=== PATIENT | female | born 1950 | race Caucasian/White ===

== ENCOUNTER 2017-04-10 10:07 | Emergency (ER) | payer BC, MEDICARE, OTHER ==
[2017-04-10 10:56] VITALS: BP 150/95
--- NOTE | 2017-04-10 11:04 | UC ---
Skin Complaint HPI - HPI Summary HPI Summary: Pt c/o possible tick bite to lower back, lateral aspect at waist band area. Pt had tick removed 4 days ago and is currently taking doxycycline Q12h given by PCP. - History of Current Complaint Chief Complaint: UCSkin Time Seen by Provider: 04/10/17 10:57 Stated Complaint: SKIN COMPLAINT ON BACK Hx Obtained From: Patient ?: No Onset/Duration: Sudden Onset, Still Present Skin Exposure Onset/Duration: Days Ago - 1 Onset Severity: Mild Current Severity: Mild Pain Intensity: 0 Location: Discrete Aggravating Factor(s): Nothing Alleviating Factor(s): Nothing Associated Signs & Symptoms: Positive: Negative Related History: Insect Bite/Sting - Allergy/Home Medications Allergies/Adverse Reactions: Allergies Allergy/AdvReac Type Severity Reaction Status Date / Time No Known Allergies Allergy Verified 04/10/17 10:56 Home Medications: Home Medications DOXYcycline CAP(*) [DOXYcycline 100MG CAP(*)] 100 mg PO BID 04/10/17 [History Confirmed 04/10/17] Losartan/Hydrochlorothiazide [Losartan-Hctz 100-25 mg Tab] 1 tab PO 04/10/17 [ History] Review of Systems Constitutional: Negative Skin: Other - possible tick bite Eyes: Negative ENT: Negative Respiratory: Negative Cardiovascular: Negative Gastrointestinal: Negative Genitourinary: Negative Motor: Negative Neurovascular: Negative Musculoskeletal: Negative Neurological: Negative Psychological: Negative Is Patient Immunocompromised?: No All Other Systems Reviewed And Are Negative: Yes PMH/Surg Hx/FS Hx/Imm Hx Previously Healthy: Yes - Surgical History Surgical History: Yes Surgery Procedure, Year, and Place: 2011 ARTHROSCOPY LEFT KNEE, [place]. R knee- 2012, bilat knee replacement - Family History Known Family History: Positive: Cardiac Disease - Social History Occupation: Retired Lives: With Family Alcohol Use: None Alcohol Amount: for lent Substance Use Type: None Smoking Status (MU): Never Smoked Tobacco Have You Smoked in the Last Year: No - Immunization History Most Recent Tetanus Shot: 2011 Physical Exam Triage Information Reviewed: Yes Appearance: Well-Appearing Vital Signs: Initial Vital Signs Temp 98.6 F 04/10/17 10:40 Pulse 78 04/10/17 10:40 Resp 18 04/10/17 10:40 BP 150/95 04/10/17 10:40 Pulse Ox 100 03/02/18 10:40 Vital Signs Reviewed: Yes Eye Exam: Normal ENT Exam: Normal Neck exam: Normal Respiratory: Positive: No respiratory distress Musculoskeletal Exam: Normal Neurological Exam: Normal Psychological Exam: Normal Skin Exam: Other - possible tick bite Course/Dx - Course Course Of Treatment: Possible tick bite, darkened area tiny, removed with splinter forceps. pt tolerated well. Pt is currently on doxycycline - Differential Diagnoses - Skin Complaint Differential Diagnoses: Tick Born Illness - Diagnoses Provider Diagnoses: tick bite. tick removed Discharge - Discharge Plan Condition: Stable Disposition: HOME Patient Education Materials: Insect Bite or Sting (ED) Referrals: Daniele Oakes MD [Primary Care Provider] - If Needed
== END 2017-04-10 11:09 | disposition home or self-care (01) ==
LOC: UCCORT 10:07
DX: S30.860D Insect bite (nonvenomous) of lower back and pelvis, subsequent encounter (principal)
CPT/HCPCS: 99211; G0463

== ENCOUNTER 2017-06-10 14:04 | Emergency (ER) | payer BC, MEDICARE, OTHER ==
[2017-06-10 14:37] VITALS: BP 120/72
--- NOTE | 2017-06-10 15:01 | UC ---
Skin Complaint HPI - HPI Summary HPI Summary: Pt was cutting brush yesterday in the [place] when puncture to right posterior inferior calf. Pt reports ongoing pain and serosangenous drainage. pt states feels more sore than previous similar injuries and is concerned for FB. No paresthesia. Pt cleaned with soap and water yesterday. Not immununocompromised. Tdap UTD. No analgesia taken Pt's medications reviewed this visit - History of Current Complaint Chief Complaint: UCLowerExtremity Time Seen by Provider: 06/10/17 14:58 Stated Complaint: RT LEG INJURY Hx Obtained From: Patient ?: No Onset/Duration: Sudden Onset Skin Exposure Onset/Duration: Days Ago Timing: Constant Onset Severity: Mild Current Severity: Moderate Pain Intensity: 6 Location: Discrete Aggravating Factor(s): Touch Alleviating Factor(s): Nothing Associated Signs & Symptoms: Positive: Negative - Allergy/Home Medications Allergies/Adverse Reactions: Allergies Allergy/AdvReac Type Severity Reaction Status Date / Time No Known Allergies Allergy Verified 04/10/17 10:56 Review of Systems Constitutional: Negative Skin: Other All Other Systems Reviewed And Are Negative: Yes PMH/Surg Hx/FS Hx/Imm Hx Previously Healthy: Yes - Surgical History Surgical History: Yes Surgery Procedure, Year, and Place: 2011 ARTHROSCOPY LEFT KNEE, [place]. R knee- 2013, bilat knee replacement. RIGHT THUMB I&D. TONSILLECTOMY - Family History Known Family History: Positive: None, Cardiac Disease - Social History Occupation: Retired Lives: With Family Alcohol Use: Weekly Alcohol Amount: for lent Substance Use Type: None Smoking Status (MU): Never Smoked Tobacco Have You Smoked in the Last Year: No - Immunization History Most Recent Tetanus Shot: 2011 Physical Exam Triage Information Reviewed: Yes Appearance: Well-Appearing, No Pain Distress, Well-Nourished Vital Signs: Initial Vital Signs Temp 98.6 F 06/10/17 14:29 Pulse 82 06/10/17 14:29 Resp 18 06/10/17 14:29 BP 120/72 06/10/17 14:29 Pulse Ox 100 06/10/17 14:29 Vital Signs Reviewed: Yes Eyes: Positive: Conjunctiva Clear ENT: Positive: Hearing grossly normal Neck: Positive: Supple Respiratory: Positive: No respiratory distress, No accessory muscle use Cardiovascular: Positive: Other: - 2+ DP, PT CBT < 2 sec Musculoskeletal Exam: Other - + flex/ext ankle with "pulling" right posterior calf + flex/ext knee Neurological: Positive: Other: - + gross sensation throughout foot Skin: Positive: Other - Pt with puncture wound posterior inferior calf. Pt with scant serosangenous drainage mild erythema no fluctuance No palpable or visible fb No red streaking Diagnostics - Radiology No standard instances Radiology Interpretation Completed By: Radiologist - Neg US for fb normal xray Course/Dx - Course Course Of Treatment: will update tdap. augmentin. soaks. motrin/apap. return precautions - Diagnoses Provider Diagnoses: puncture wound. cellulitis - mild Discharge - Sign-Out/Discharge Documenting (check all that apply): Discharge/Admit/Transfer - Discharge Plan Condition: Stable Disposition: HOME Prescriptions: Amoxicillin/Clavulanate TAB* [Augmentin TAB 875*] 875 mg PO BID #20 tab Patient Education Materials: Puncture Wound (ED), Cellulitis (ED) Referrals: Daniele Oakes MD [Primary Care Provider] - Additional Instructions: - Apply warm soak 2-3 times a day for the next 3-4 days - Cover wound with thin layer of antibiotics 2 times a day and bandage - elevate your leg to help with swelling and pain - Okay to take tylenol every 6 hours as needed for pain - monitor your wound for worsening infection - reddness, red streaking, odor, fever - contact your doctor or got to the emergency department with any questions or concerns - Billing Disposition and Condition Condition: STABLE Disposition: HOME
[2017-06-10] MEDS ORDERED: Tetan/Diph/Pertus SYR(Tdap)* 0.5 ML SYR(BOOSTRIX) use SYR IM ONE ×2 (15:05→15:57)
[2017-06-10] MEDS ORDERED: Lidocaine 1% MPF* 2 ML VIAL INJ ONE (15:05)
--- NOTE | 2017-06-10 15:34 | RAD ---
Indication: Question wood foreign body at the posterior inferior RIGHT calf. Comparison: No relevant prior exams available on the [facility] PACS for comparison. Technique: Ultrasound of the posterior inferior RIGHT calf corresponding with the region of clinical concern. REPORT AND IMPRESSION: Dermal and subcutaneous edema at the site of clinical concern without evidence for a loculated fluid collection or conspicuous foreign body.
--- NOTE | 2017-06-10 16:20 | RAD ---
HISTORY: Puncture wound above the Achilles, rule out foreign body COMPARISONS: Ultrasound dated June 10, 2012 VIEWS: 2, Frontal and lateral views of the right ankle and distal foreleg. FINDINGS: BONE DENSITY: Normal. BONES: There is no displaced fracture. JOINTS: There is no arthropathy. ALIGNMENT: There is no dislocation. SOFT TISSUES: Unremarkable. OTHER FINDINGS: There is no radiopaque foreign body. IMPRESSION: NO ACUTE OSSEOUS INJURY. NO RADIOPAQUE FOREIGN BODY. IF SYMPTOMS PERSIST, RECOMMEND REPEAT IMAGING.
== END 2017-06-10 16:30 | disposition home or self-care (01) ==
LOC: UCCORT 14:04
DX: S81.831A Puncture wound without foreign body, right lower leg, initial encounter (principal); L03.818 Cellulitis of other sites; L03.115 Cellulitis of right lower limb; X58.XXXA Exposure to other specified factors, initial encounter; Y93.89 Activity, other specified; Y92.821 Forest as the place of occurrence of the external cause
CPT/HCPCS: 90471; 90715; 99212; G0463

== ENCOUNTER 2018-07-21 15:30 | Emergency (ER) | payer MEDICARE, BC ==
--- OUTSIDE RECORDS SUMMARY | 2018-07-21 15:48 | XMS REPORT | Continuity of Care Document ---
:1950 External Reference #:[id number] Author Name Ashley Aguirre Care Team Providers Name Role Daniele Damon MD Primary Care Physician Unavailable Payers Date Identification Numbers Payment Provider Subscriber Expires: 2018 Policy Number: [id number] Johnnyus Haynes Loulou PayID: [id number] [address] [address] [place] [address] Policy Number: [id number] Medicare Hemalathadanika Azevedo Loulou PayID: [id number] [address] [place] [address] Policy Number: [id number] Tarah Jamil Group Name: Matt [address] [address] PayID: [id number] [place] [address] Problems Active Problems Provider Date Mitral valve disorder Daniele Oakes MD Onset: 11/28/2010 Osteoarthritis Daniele Oakes MD Onset: 11/28/2010 Removal of suture Daniele Oakes MD Onset: 12/30/2010 Joint effusion of ankle AND/OR foot Daniele Oakes MD Onset: 2011 Stricture of esophagus Daniele Oakes MD Onset: 06/09/2012 Spasmodic torticollis Daniele Oakes MD Onset: 11/08/2012 Essential hypertension Daniele Oakes MD Onset: 02/23/2013 Family History Date Family Member(s) Observation Comments Father Colon Cancer Age 47 Father Prostate Disease Mother Alzheimer's Disease Social History Type Date Description Comments Sex Unknown Marital Status Tobacco Use Start: Unknown Never Smoked Cigarettes ETOH Use Consumes 1 glass of wine per day Tobacco Use Start: Unknown Patient has never smoked Recreational Drug Use Denies Drug Use Smoking Status Reviewed: 09/18/16 Patient has never smoked Currently Active The patient is currently sexually active Allergies, Adverse Reactions, Alerts Description No Known Drug Allergies Medications Active Medications SIG Qnty Indications Ordering Date Provider Shingrix 1 dose intramuscular 2doses Daniele Oakes MD 06/09/2017 50mcg then repeat in 4 Suspension Rec month Losartan 1 by mouth every day 90taalexandra Oakes MD 05/29/2016 Potassium/Hydrochlo rothiazide 100-25mg Tablets Polyethylene Glycol 17 gm every day as 90unmecca Oakes MD 06/16/2014 3350 needed Powder Amitiza 1pobid 180capjohanny Oakes MD 09/10/2010 8mcg Capsules History Medications Doxycycline Hyclate 1 by mouth twice a 28caps Daniele Oakes MD 04/03/2017 - 100mg day 06/09/2017 Capsules Toprol XL 1 by mouth every 90taalexandra Oakes MD 09/18/2016 - 25mg Tablets ER at night 06/09/2017 24HR Sulindac tab 1 by mouth 90taalexandra Oakes MD 03/21/2016 - 200mg Tablets every day 05/29/2016 Losartan 1 by mouth every 90tabs Daniele Oakes MD 03/21/2016 - Potassium/Hydrochlorot day 05/29/2016 hiazide 50-12.5mg Tablets Vasotec 1 by mouth every 90taalexandra Oakes MD 07/12/2015 - 10mg Tablets day 03/21/2016 Folgard 1 po qd 90taalexandra Oakes MD 05/29/2015 - Tablets 09/18/2016 Zostavax injection as 1unmecca Oakes MD 05/29/2015 - 82909Lbw/0.65ML ordered 07/02/2015 Solution Rec Belviq tab 1 by mouth 30taalexandra Oakes MD 01/12/2014 - 10mg Tablets every day 07/12/2015 Toprol XL 1 po hs 90taalexandra Oakes MD 03/21/2013 - 25mg Tablets ER 12/28/2013 24HR Folgard 1 po qd 90taalexandra Oakes MD 03/14/2013 - Tablets 05/29/2015 Polyethylene Glycol 17 gm every day 90pantera Oakes MD 03/14/2013 - 3350 and needed 06/16/2014 3350NF Packet Folgard 1 po qd 90taalexandra Oakes MD 03/09/2013 - Tablets 03/14/2013 Polyethylene Glycol as directed prn 90unmecca Oakes MD 03/09/2013 - 1450 03/14/2013 1450 Powder Omeprazole 1 by mouth every 90tabs Daniele Oakes MD 03/09/2013 - 20mg Tablets day 03/21/2016 DR March 1 po qd 90taalexandra Oakes MD 03/03/2013 - 5mg Tablets 12/28/2013 Anca 1 po qd 90tabs Gracie Stafford, 02/23/2013 - 5mg Tablets M.D. 03/14/2013 Robaxin tab 1 bid prn 60tabs Daniele Oakes MD 11/08/2012 - 500mg Tablets muscle spasm 06/13/2013 Asprin 1 po qd 30units Daniele Oakes MD 12/03/2011 - 325mg 05/29/2015 Nexium 1 po qd 30caps Daniele Oakes MD 11/29/2009 - 40mg Capsules 12/14/2012 Cipro 1 po bid 14tabs Daniele Oakes MD 09/04/2009 - 250mg Tablets 11/29/2009 Lariam 1 po q week start 10taalexandra Oakes MD 09/03/2009 - 250mg Tablets 1 week before trip 11/29/2009 continue for 4 weeks after Vitamin D-3 Super daily otc Daniele Oakes MD 05/24/2009 - Strength 09/18/2016 2000Unit Tablets Lariam 1 po q week start 10tabs Nurse 02/12/2009 - 250mg Tablets 1 week before trip 05/24/2009 continue for 4 weeks after Procardia 1 q day 90capjohanny Oakes MD 09/01/2007 - 10mg Capsules 11/28/2008 Medrol Dose Alex use as directed Daniele Oakes MD 08/26/2005 - 4mg 02/10/2007 Tablets Augmentin 1 po bid with food 20tabs Daniele Oakes MD 08/26/2005 - 875mg Tablets 02/10/2007 Folgard OS 1 po qd 90tabs Daniele Oakes MD 08/26/2005 - 1.5mg;500 mg 03/09/2013 Tablets Glycolax 1 capful in 8 527Gram Daniele Oakes MD 08/26/2005 - Powder Tablets ounces of water 12/14/2012 every 2-3 days for bowel movement Meridia 1 po qd 30caps Daniele Oakes MD 01/23/2005 - 10mg Capsules 11/28/2010 Zithromax Z-Alex 1 po qd 1Pak Daniele Oakes MD 01/23/2005 - 250mg 02/13/2005 Tablets Protonix 1 po qd 90caps Daneile Oakes MD 01/21/2005 - 40mg Capsules 02/05/2005 Aspirin Daniele Oakes MD 01/21/2005 - 81mg Enteric 02/05/2005 Zelnorm 1 po bid 180tabs Daniele Oakes MD - 6mg Tablets 06/22/2007 Semprex D 1 po q 6 hr Unknown - 8mg;60 mg 06/22/2007 Capsules Naprosyn 1 po bid with food 60tabs Unknown - 500mg Tablets prn pain 06/13/2013 Immunizations CPT Code Status Date Vaccine Lot # [id number] Given 10/13/2017 Influenza Virus (Afluria) Split Virus 3 Years [id number] Of Age And Older Q2035 Given 02/18/2017 Influenza Virus (Afluria) Split Virus 3 Years [id number] Of Age And Older Q2035 Given 11/11/2016 Influenza Virus (Afluria) Split Virus 3 Years Of Age And Older Q2037 Given 12/04/2015 Influenza Vaccine (Fluvirin) 1 Years Of Age Or [id number] Older 07304 Given 05/29/2015 Zostavax 06296 Given 02/14/2015 Pneumococcal Conjugate Vaccine 13 Valent For [id number] Intramuscular Use Q2038 Given 12/28/2013 Influenza Vaccine (Fluzone) Administered Age 3 [id number] And Older Q2036 Given 12/28/2013 Flulaval 97375 Given 12/28/2013 Pneumovax Polyvalent Inj Im Q2037 Given 12/14/2012 Influenza Vaccine (Fluvirin) 3 Years Of Age Or Older Q2037 Given 2011 Influenza Vaccine (Fluvirin) 1 Years Of Age Or [id number] Older 63179 Given 06/02/2011 Tetanus,Diphtheria,Adut/Adol Pertussis [id number] Q2036 Given 11/28/2010 Flulaval [id number] 20774 Given 11/29/2009 Influenza Vaccine [id number] 63571 Given 06/12/2009 Hepatitis B Vaccine [id number] 09981 Given 03/15/2009 Hepatitis B Vaccine 79616 Given 03/15/2009 Hepatitis B Vaccine [id number] 19931 Given 03/15/2009 Typhoid Inj- Capsular Polysaccharide Intramuscular Use 89192 Given 03/15/2009 Typhoid Inj- Capsular Polysaccharide [id number] Intramuscular Use 77025 Given 02/12/2009 Hepatitis B Vaccine [id number] 75310 Given 02/12/2009 Tetanus Shot [id number] 28105 Given 02/12/2009 Hepatitis A Vaccine [id number] Vital Signs Date Vital Result Comment 07/20/2018 9:14am BP Systolic 112 mmHg BP Diastolic 82 mmHg Heart Rate 80 /min Height 68 inches 5'8" Weight 169.00 lb BMI (Body Mass Index) 25.7 kg/m2 01/19/2018 12:53pm BP Systolic 138 mmHg BP Diastolic 84 mmHg Height 68 inches 5'8" Weight 166.00 lb BMI (Body Mass Index) 25.2 kg/m2 10/29/2017 1:35pm BP Systolic 138 mmHg BP Diastolic 82 mmHg Heart Rate 80 /min Respiratory Rate 18 /min Weight 165.00 lb O2 % BldC Oximetry 97 % 10/13/2017 8:30am BP Systolic 120 mmHg BP Diastolic 76 mmHg Heart Rate 64 /min Respiratory Rate 18 /min Weight 168.00 lb O2 % BldC Oximetry 97 % 06/09/2017 9:02am BP Systolic 140 mmHg BP Diastolic 90 mmHg BP Systolic Recheck 121 mmHg home bp reading BP Diastolic Recheck 77 mmHg home bp reading Weight 170.00 lb 11/11/2016 4:17pm BP Systolic 128 mmHg BP Diastolic 70 mmHg Heart Rate 66 /min Respiratory Rate 18 /min Height 68 inches 5'8" Weight 169.00 lb BMI (Body Mass Index) 25.7 kg/m2 09/18/2016 10:10am BP Systolic 140 mmHg BP Diastolic 80 mmHg Height 68 inches 5'8" Weight 170.00 lb BMI (Body Mass Index) 25.8 kg/m2 05/29/2016 12:53pm BP Systolic 142 mmHg BP Diastolic 82 mmHg Height 68 inches 5'8" Weight 160.00 lb BMI (Body Mass Index) 24.3 kg/m2 03/21/2016 8:48am BP Systolic 150 mmHg BP Diastolic 100 mmHg Height 68 inches 5'8" Weight 170.00 lb BMI (Body Mass Index) 25.8 kg/m2 12/04/2015 1:02pm BP Systolic 120 mmHg BP Diastolic 64 mmHg Height 68 inches 5'8" Weight 166.00 lb BMI (Body Mass Index) 25.2 kg/m2 07/12/2015 3:24pm BP Systolic 160 mmHg BP Diastolic 90 mmHg 05/29/2015 9:58am BP Systolic 130 mmHg BP Diastolic 80 mmHg Height 68 inches 5'8" Weight 163.00 lb BMI (Body Mass Index) 24.8 kg/m2 02/14/2015 8:30pm BP Systolic 138 mmHg BP Diastolic 78 mmHg Height 68 inches 5'8" Weight 165.00 lb BMI (Body Mass Index) 25.1 kg/m2 10/04/2014 4:11pm BP Systolic 132 mmHg BP Diastolic 70 mmHg 09/08/2014 3:43pm BP Systolic 122 mmHg BP Diastolic 84 mmHg Height 68 inches 5'8" Weight 165.00 lb BMI (Body Mass Index) 25.1 kg/m2 08/09/2014 2:18pm BP Systolic 140 mmHg BP Diastolic 88 mmHg Height 68 inches 5'8" Weight 164.00 lb BMI (Body Mass Index) 24.9 kg/m2 07/19/2014 7:23pm BP Systolic 138 mmHg BP Diastolic 72 mmHg 06/16/2014 2:53pm BP Systolic 122 mmHg BP Diastolic 68 mmHg Height 68 inches 5'8" Weight 165.00 lb BMI (Body Mass Index) 25.1 kg/m2 05/17/2014 2:29pm BP Systolic 144 mmHg BP Diastolic 86 mmHg Height 68 inches 5'8" Weight 173.00 lb BMI (Body Mass Index) 26.3 kg/m2 04/12/2014 7:39pm BP Systolic 136 mmHg BP Diastolic 76 mmHg Height 69 inches 5'9" Weight 166.00 lb [facility] (Body Mass Index) 24.5 kg/m2 03/24/2014 3:17pm BP Systolic 138 mmHg BP Diastolic 88 mmHg Height 69 inches 5'9" Weight 172.00 lb BMI (Body Mass Index) 25.4 kg/m2 02/22/2014 1:42pm BP Systolic 140 mmHg BP Diastolic 80 mmHg Height 69 inches 5'9" Weight 178.00 lb BMI (Body Mass Index) 26.3 kg/m2 01/26/2014 10:02am BP Systolic 130 mmHg BP Diastolic 80 mmHg Height 69 inches 5'9" Weight 179.00 lb BMI (Body Mass Index) 26.4 kg/m2 01/12/2014 1:42pm BP Systolic 140 mmHg BP Diastolic 80 mmHg Weight 181.00 lb 12/28/2013 10:46am BP Systolic 130 mmHg BP Diastolic 90 mmHg Height 67 inches 5'7" Weight 174.00 lb BMI (Body Mass Index) 27.2 kg/m2 09/19/2013 12:32pm BP Systolic 132 mmHg BP Diastolic 80 mmHg Height 67 inches 5'7" Weight 171.00 lb BMI (Body Mass Index) 26.8 kg/m2 06/13/2013 11:18am BP Systolic 120 mmHg BP Diastolic 82 mmHg 04/05/2013 12:08pm BP Systolic 144 mmHg BP Diastolic 90 mmHg 03/21/2013 9:27am BP Systolic 140 mmHg BP Diastolic 98 mmHg 03/08/2013 4:35pm BP Systolic 140 mmHg BP Diastolic 80 mmHg 03/03/2013 11:51am BP Systolic 150 mmHg BP Diastolic 90 mmHg 02/25/2013 8:38am BP Systolic 140 mmHg BP Diastolic 94 mmHg 02/23/2013 3:06pm BP Systolic 180 mmHg BP Diastolic 108 mmHg BP Systolic Recheck 160 mmHg BP Diastolic Recheck 100 mmHg 12/14/2012 12:00pm BP Systolic 124 mmHg BP Diastolic 70 mmHg Height 69 inches 5'9" Weight 172.00 lb BMI (Body Mass Index) 25.4 kg/m2 11/08/2012 3:24pm BP Systolic 150 mmHg BP Diastolic 90 mmHg 06/11/2012 11:13am BP Systolic 118 mmHg BP Diastolic 74 mmHg 06/09/2012 2:06pm BP Systolic 132 mmHg BP Diastolic 76 mmHg Height 68 inches 5'8" 06/03/2012 10:02am BP Systolic 132 mmHg BP Diastolic 76 mmHg Height 68 inches 5'8" Weight 167.00 lb BMI (Body Mass Index) 25.4 kg/m2 12/23/2011 12:05pm BP Systolic 136 mmHg BP Diastolic 80 mmHg Height 68 inches 5'8" Weight 166.00 lb BMI (Body Mass Index) 25.2 kg/m2 12/03/2011 10:18am BP Systolic 110 mmHg BP Diastolic 80 mmHg Height 68 inches 5'8" Weight 168.00 lb BMI (Body Mass Index) 25.5 kg/m2 2011 2:49pm BP Systolic 120 mmHg BP Diastolic 82 mmHg 09/24/2011 10:42am BP Systolic 118 mmHg BP Diastolic 70 mmHg Height 68 inches 5'8" Weight 176.00 lb BMI (Body Mass Index) 26.8 kg/m2 09/16/2011 3:18pm BP Systolic 110 mmHg BP Diastolic 80 mmHg 06/02/2011 10:16am BP Systolic 130 mmHg BP Diastolic 80 mmHg Height 69 inches 5'9" Weight 176.00 lb BMI (Body Mass Index) 26.0 kg/m2 12/30/2010 11:41am BP Systolic 112 mmHg BP Diastolic 78 mmHg 11/28/2010 10:58am BP Systolic 140 mmHg BP Diastolic 88 mmHg Height 68 inches 5'8" Weight 174.00 lb BMI (Body Mass Index) 26.5 kg/m2 05/30/2010 2:55pm BP Systolic 137 mmHg BP Diastolic 77 mmHg Weight 166.00 lb 11/29/2009 3:23pm BP Systolic 142 mmHg BP Diastolic 80 mmHg Weight 163.00 lb 05/24/2009 3:16pm BP Systolic 118 mmHg BP Diastolic 80 mmHg Weight 163.00 lb 12/25/2008 2:44pm BP Systolic 144 mmHg BP Diastolic 98 mmHg 11/28/2008 2:52pm BP Systolic 122 mmHg BP Diastolic 70 mmHg Height 68.25 inches 5'8.25" Weight 159.00 lb BMI (Body Mass Index) 24.0 kg/m2 05/15/2008 3:37pm BP Systolic 118 mmHg BP Diastolic 80 mmHg Height 68.25 inches 5'8.25" Weight 163.00 lb BMI (Body Mass Index) 24.6 kg/m2 11/24/2007 3:27pm BP Systolic 128 mmHg BP Diastolic 70 mmHg Height 68.25 inches 5'8.25" Weight 169.00 lb BMI (Body Mass Index) 25.5 kg/m2 09/01/2007 12:55pm BP Systolic 138 mmHg BP Diastolic 92 mmHg Height 68.25 inches 5'8.25" 07/21/2007 3:18pm BP Systolic 140 mmHg BP Diastolic 76 mmHg Height 68.25 inches 5'8.25" 06/22/2007 3:35pm BP Systolic 138 mmHg BP Diastolic 86 mmHg Height 68.25 inches 5'8.25" Weight 166.00 lb BMI (Body Mass Index) 25.1 kg/m2 02/10/2007 3:10pm BP Systolic 154 mmHg BP Diastolic 98 mmHg Height 68.25 inches 5'8.25" Weight 166.00 lb BMI (Body Mass Index) 25.1 kg/m2 08/26/2005 1:32pm BP Systolic 140 mmHg BP Diastolic 80 mmHg Height 68.25 inches 5'8.25" 02/13/2005 12:47pm BP Systolic 122 mmHg BP Diastolic 84 mmHg Height 68.25 inches 5'8.25" Weight 177.00 lb BMI (Body Mass Index) 26.7 kg/m2 02/05/2005 10:55am BP Systolic 160 mmHg BP Diastolic 98 mmHg Height 68.25 inches 5'8.25" Weight 178.00 lb BMI (Body Mass Index) 26.9 kg/m2 Results Test Date Facility Test Result H/L Range Note Basic Metabolic 07/13/2018 [facility] Sodium 140 mmol/L 135-146 [address] [place] [address] [phone] Potassium 4.0 mmol/L 3.5-5.3 Chloride 102 mmol/L 98-110 Carbon Dioxide 28 mmol/L 20-32 2 Calcium 9.4 mg/dL 8.6-10.4 Glucose 98 mg/dL 65-99 3 Urea Nitrogen (BUN) 14 mg/dL 7-25 Creatinine 0.83 mg/dL 0.50-0.99 4 BUN/Creatinine Ratio 16.9 6-22 Egfr Non-Afr. [place] 72 ML/MIN/1.73M2 > Or=60 Egfr 83 ML/MIN/1.73M2 > Or=60 General Health 01/06/2018 [facility] Thyroid Stim 2.38 uIU/mL N 0.30-4.20 5 Panel [facility] [address] [place] [place] [address] [phone] Free T4 0.88 ng/dL N 0.76-1.46 .CBC W/Auto 01/06/2018 [facility] White Blood 7.5 K/ uL N 3.1-10.[address] [place] [address] [phone] Red Blood Count 3.94 M/uL N 3.90-5.40 Hemoglobin 13.8 gm/dL N 11.6-15.8 Hematocrit 40.7 % N 36.0-46.1 Mean Cell Volume 103.3 fl High 80.9-99.0 Mean Corpuscular HGB 35.0 pg High 25.9-32.7 Mean Corpuscular HGB Conc 33.9 g/dL N 30.8-34.3 Platelet Count 254 K/uL N 155-360 Red Cell Distri Width SD 45.4 fl N 3-47 Red Cell Distri Width %CV 12.3 % N 11.7-14.4 Mean Platelet Volume 11.0 fL N 8.9-12.4 Neut% 74.0 % High 40.4-72.8 Lymph % 18.0 % Low 20.0-42.0 [place] % 7.2 % N 4.3-13.2 Eo% 0.5 % N 0.0-6.6 Bas% 0.3 % N 0.0-1.1 Neut# 5.57 K/uL N 1.8-7.0 Lymph # 1.35 K/uL N 1.0-4.0 [place] # 0.54 K/uL N 0.3-0.9 Eos # 0.04 K/uL N 0.0-0.5 Baso # 0.02 K/uL N 0.0-0.1 .Lipid Panel 01/06/2018 [facility] Cholesterol 233 mg /dL High <[address] [place], [place] [id number] [phone] Triglycerides 87 mg/dL <150 7 HDL Cholesterol 78 mg/dL >40 8 LDL-Cholesterol 138 mg/dL < 100 9 Comprehensive 01/06/2018 [facility] Glucose 115 mg/ dL High 74-106 Metabolic Panel [address] [place], [place] [id number] [phone] BUN 14 mg/dL N 7-18 Creatinine 1.0 mg/dL N 0.6-1.3 Glom Filtration Rate, Estimate 58 mL/min >60 If >60 mL/min >60 10 BUN/Creat 14.0 ratio Sodium 139 mmol/L N 136-145 Potassium 3.8 mmol/L N 3.5-5.1 Chloride 104 mmol/L N 98-107 Carbon Dioxide 29 mmol/L N 21-32 Anion Gap 6 mEq/L Low 8-16 Calcium 9.2 mg/dL N 8.5-10.1 Total Protein 7.8 g/dL N 6.4-8.2 Albumin 3.9 g/dL N 3.4-5.0 Globulin 3.9 g/dL N 1.9-4.3 Alb/Glob 1.0 ratio Bilirubin,Total 0.8 mg/dL N 0.2-1.0 Sgot/Ast 27 U/L N 15-37 SGPT/Alt 39 U/L N 12-78 Alkaline Phosphatase 72 U/L N 45-117 Comp Metabolic Panel 09/28/2017 [facility] Sodium 139 mmol/L 135-[address] [place] [address] [phone] Potassium 3.9 mmol/L 3.5-5.3 Chloride 100 mmol/L 98-110 Carbon Dioxide 27 mmol/L 20-31 Calcium 9.9 mg/dL 8.6-10.4 Alkaline Phosphatase 78 U/L 33-130 Ast 24 U/L 10-35 Alt 23 U/L 6-29 Bilirubin,Total 1.0 mg/dL 0.2-1.2 Glucose 86 mg/dL 65-99 12 Urea Nitrogen (BUN) 21 mg/dL 7-25 Creatinine 0.99 mg/dL 0.50-0.99 13 BUN/Creatinine Ratio 20.8 6-22 Protein,Total 7.5 g/dL 6.1-8.1 Albumin 4.7 g/dL 3.6-5.1 Globulin,Calculated 2.8 g/dL 1.9-3.7 A/G Ratio 1.7 1.0-2.5 Egfr Non-Afr. [place] 59 ML/MIN/1.73M2 Low > Or=60 Egfr 68 ML/MIN/1.73M2 > Or=60 CBC W/ Diff & PLT 10/24/2016 [facility] WBC 4.6 thous/L 3.8-10.[address] [place] [address] [phone] RBC 3.85 mill/L 3.80-5.10 Hemoglobin 13.5 g/dL 11.7-15.5 Hematocrit 39.4 % 35.0-45.0 MCV 102.3 FL High 80.0-100.0 MCH 35.1 pg High 27.0-33.0 MCHC 34.3 g/dL 32.0-36.0 RDW 13.2 % 11.0-15.0 Platelet Count 290 thous/L 140-400 Platelet Sufficiency PENDING MPV 9.1 FL 7.5-12.5 Neutrophils,Absolute 2500 cells/L 4380-2218 Bands,Absolute PENDING Metamyelocytes,Absolute PENDING Myelocytes,Absolute PENDING Promyelocytes,Absolute PENDING Lymphocytes,Absolute 1610 cells/L 850-3900 Monocytes,Absolute 350 cells/L 200-950 Eosinophils,Absolute 80 cells/L 15-500 Basophils,Absolute 20 cells/L 0-200 Blast Cells,Absolute PENDING Nucleated RBC,Absolute PENDING Total Neutrophils,% 55 % 40-75 Bands,% PENDING Metamyelocytes,% PENDING Myelocytes,% PENDING Promyelocytes,% PENDING Total Lymphocytes,% 35 % 12-47 Monocytes,% 8 % 4-12 Eosinophils,% 2 % 0-4 Basophils,% 1 % 0-1 14 Blasts,% PENDING Nucleated RBC PENDING RBC Morphology PENDING Anisocytosis PENDING Poikilocytosis PENDING Microcytosis PENDING Macrocytosis PENDING Polychromasia PENDING Hypochromasia PENDING Target Cells PENDING Basophilic Stippling PENDING Comment PENDING Hepatic Function 10/24/2016 [facility] Alkaline Phosphatase 54 U/L 33- [address] [place] [address] [phone] Ast 20 U/L 10-35 Alt 16 U/L 6-29 Bilirubin,Total 0.6 mg/dL 0.2-1.2 Bilirubin,Direct 0.1 mg/dL < Or=0.2 Protein,Total 6.9 g/dL 6.1-8.1 Albumin 4.3 g/dL 3.6-5.1 Globulin,Calculated 2.6 g/dL 1.9-3.7 A/G Ratio 1.6 1.0-2.5 Basic Metabolic Panel 10/24/2016 [facility] Sodium 139 mmol/L 135-[address] [place] [address] [phone] Potassium 4.1 mmol/L 3.5-5.3 Chloride 102 mmol/L 98-110 Carbon Dioxide 27 mmol/L 20-31 Calcium 9.5 mg/dL 8.6-10.4 Glucose 95 mg/dL 65-99 15 Urea Nitrogen 14 mg/dL 7-25 Creatinine 0.86 mg/dL 0.50-0.99 16 BUN/Creatinine Ratio 16.0 6-22 Egfr Non-Afr. [place] 69 ML/MIN/1.73M2 > Or=60 Egfr 80 ML/MIN/1.73M2 > Or=60 Basic Metabolic Panel 09/18/2016 [facility] Sodium 139 mmol/L 135-[address] [place] [address] [phone] Potassium 3.9 mmol/L 3.5-5.3 Chloride 103 mmol/L 98-110 Carbon Dioxide 26 mmol/L 20-31 Calcium 9.9 mg/dL 8.6-10.4 Glucose 103 mg/dL High 65-99 17 Urea Nitrogen 16 mg/dL 7-25 Creatinine 0.80 mg/dL 0.50-0.99 18 BUN/Creatinine Ratio 20.5 6-22 Egfr Non-Afr. [place] 76 ML/MIN/1.73M2 > Or=60 Egfr 88 ML/MIN/1.73M2 > Or=60 General Health Panel 05/22/2016 [facility] TSH 2.42 mIU/L 0.40-4.50 19 [address] [place] [address] [phone] T4,Free 1.0 ng/dL 0.8-1.8 CBC W/ Diff & PLT 05/22/2016 [facility] WBC 4.1 thous/L 3.8-10.8 6 [place] [address] [phone] RBC 3.86 mill/L 3.80-5.10 Hemoglobin 13.2 g/dL 11.7-15.5 Hematocrit 39.7 % 35.0-45.0 MCV 102.8 FL High 80.0-100.0 MCH 34.1 pg High 27.0-33.0 MCHC 33.2 g/dL 32.0-36.0 RDW 13.8 % 11.0-15.0 Platelet Count 265 thous/L 140-400 Platelet Sufficiency PENDING MPV 9.3 FL 7.5-12.5 Neutrophils,Absolute 2100 cells/L 6756-0192 Bands,Absolute PENDING Metamyelocytes,Absolute PENDING Myelocytes,Absolute PENDING Promyelocytes,Absolute PENDING Lymphocytes,Absolute 1370 cells/L 850-3900 Monocytes,Absolute 380 cells/L 200-950 Eosinophils,Absolute 250 cells/L 15-500 Basophils,Absolute 30 cells/L 0-200 Blast Cells,Absolute PENDING Nucleated RBC,Absolute PENDING Total Neutrophils,% 51 % 40-75 Bands,% PENDING Metamyelocytes,% PENDING Myelocytes,% PENDING Promyelocytes,% PENDING Total Lymphocytes,% 33 % 12-47 Monocytes,% 9 % 4-12 Eosinophils,% 6 % High 0-4 Basophils,% 1 % 0-1 20 Blasts,% PENDING Nucleated RBC PENDING RBC Morphology PENDING Anisocytosis PENDING Poikilocytosis PENDING Microcytosis PENDING Macrocytosis PENDING Polychromasia PENDING Hypochromasia PENDING Target Cells PENDING Basophilic Stippling PENDING Comment PENDING Lipid Panel 05/22/2016 [facility] Cholesterol 200 mg/dL 125-[address] [place] [address] [phone] HDL Cholesterol 67 mg/dL > Or=46 Cholesterol/HDL Ratio 3.0 < Or=5.0 LDL Chol,Calculated 118 mg/dL <130 21 Triglycerides 76 mg/dL <150 Non-HDL Cholesterol 134 mg/dL 22 Hepatic Function 05/22/2016 [facility] Alkaline Phosphatase 54 U/L 33- [address] [place] [address] [phone] Ast 20 U/L 10-35 Alt 17 U/L 6-29 Bilirubin,Total 0.5 mg/dL 0.2-1.2 Bilirubin,Direct 0.1 mg/dL < Or=0.2 Protein,Total 6.7 g/dL 6.1-8.1 Albumin 4.2 g/dL 3.6-5.1 Globulin,Calculated 2.5 g/dL 1.9-3.7 A/G Ratio 1.7 1.0-2.5 23 Laboratory test 05/22/2016 [facility] Vitamin A 56 g/dL 38-[address] (Retinol) [place] [address] [phone] Comp Metabolic 05/22/2016 [facility] Sodium 140 mmol/L 135-[address] [place] [address] [phone] Potassium 4.2 mmol/L 3.5-5.3 Chloride 105 mmol/L 98-110 Carbon Dioxide 27 mmol/L 20-31 Calcium 9.5 mg/dL 8.6-10.4 Alkaline Phosphatase 54 U/L 33-130 Ast 20 U/L 10-35 Alt 17 U/L 6-29 Bilirubin,Total 0.5 mg/dL 0.2-1.2 Glucose 95 mg/dL 65-99 25 Urea Nitrogen 11 mg/dL 7-25 Creatinine 0.75 mg/dL 0.50-0.99 26 BUN/Creatinine Ratio 14.3 6-22 Protein,Total 6.7 g/dL 6.1-8.1 Albumin 4.2 g/dL 3.6-5.1 Globulin,Calculated 2.5 g/dL 1.9-3.7 A/G Ratio 1.7 1.0-2.5 27 Egfr Non-Afr. [place] 82 ML/MIN/1.73M2 > Or=60 Egfr 96 ML/MIN/1.73M2 > Or=60 Basic Metabolic Panel 03/13/2016 [facility] Sodium 138 mmol/L 135-[address] [place] [address] [phone] Potassium 4.4 mmol/L 3.5-5.3 Chloride 103 mmol/L 98-110 Carbon Dioxide 26 mmol/L 20-31 Calcium 9.9 mg/dL 8.6-10.4 Glucose 82 mg/dL 65-99 28 Urea Nitrogen 12 mg/dL 7-25 Creatinine 0.74 mg/dL 0.50-0.99 29 BUN/Creatinine Ratio 16.8 6-22 Egfr Non-Afr. [place] 84 ML/MIN/1.73M2 > Or=60 Egfr 97 ML/MIN/1.73M2 > Or=60 General Health Panel 05/16/2015 [facility] TSH 2.01 mIU/L 0.40-4.[address] [place] [address] [phone] T4,Free 1.0 ng/dL 0.8-1.8 CMP W/O Egfr 05/16/2015 [facility] Sodium 138 mmol/L 135-[address] [place] [address] [phone] Potassium 4.4 mmol/L 3.5-5.3 Chloride 103 mmol/L 98-110 Carbon Dioxide 26 mmol/L 19-30 Calcium 9.8 mg/dL 8.6-10.4 Alkaline Phosphatase 69 U/L 33-130 Ast 24 U/L 10-35 Alt 26 U/L 6-29 Bilirubin,Total 1.0 mg/dL 0.2-1.2 Glucose 88 mg/dL 65-99 31 Urea Nitrogen 15 mg/dL 7-25 Creatinine 0.81 mg/dL 0.50-0.99 32 BUN/Creatinine Ratio 18.3 6-22 Protein,Total 7.1 g/dL 6.1-8.1 Albumin 4.3 g/dL 3.6-5.1 Globulin,Calculated 2.8 g/dL 1.9-3.7 A/G Ratio 1.6 1.0-2.5 CBC W/ Diff & PLT 05/16/2015 [facility] WBC 5.7 thous/L 3.8-10.[address] [place] [address] [phone] RBC 4.14 mill/L 3.80-5.10 Hemoglobin 14.5 g/dL 11.7-15.5 Hematocrit 43.3 % 35.0-45.0 MCV 104.5 FL High 80.0-100.0 MCH 35.1 pg High 27.0-33.0 MCHC 33.6 g/dL 32.0-36.0 RDW 13.6 % 11.0-15.0 Platelet Count 247 thous/L 140-400 Platelet Sufficiency PENDING MPV 9.3 FL 7.5-11.5 Neutrophils,Absolute 3640 cells/L 6541-8242 Bands,Absolute PENDING Metamyelocytes,Absolute PENDING Myelocytes,Absolute PENDING Promyelocytes,Absolute PENDING Lymphocytes,Absolute 1500 cells/L 850-3900 Monocytes,Absolute 460 cells/L 200-950 Eosinophils,Absolute 60 cells/L 15-500 Basophils,Absolute 40 cells/L 0-200 Blast Cells,Absolute PENDING Nucleated RBC,Absolute PENDING Total Neutrophils,% 64 % 40-75 Bands,% PENDING Metamyelocytes,% PENDING Myelocytes,% PENDING Promyelocytes,% PENDING Total Lymphocytes,% 26 % 12-47 Monocytes,% 8 % 4-12 Eosinophils,% 1 % 0-4 Basophils,% 1 % 0-1 33 Blasts,% PENDING Nucleated RBC PENDING RBC Morphology PENDING Anisocytosis PENDING Poikilocytosis PENDING Microcytosis PENDING Macrocytosis PENDING Polychromasia PENDING Hypochromasia PENDING Target Cells PENDING Basophilic Stippling PENDING Comment PENDING Lipid Panel 05/16/2015 [facility] Cholesterol 226 mg/dL High 125-[address] [place], [place] [id number] [phone] HDL Cholesterol 72 mg/dL > Or=46 Cholesterol/HDL Ratio 3.1 < Or=5.0 LDL Chol,Calculated 142 mg/dL High <130 34 Triglycerides 60 mg/dL <150 Non-HDL Cholesterol 154 mg/dL 35 Hepatic Function 05/16/2015 [facility] Alkaline Phosphatase 69 U/L 33- [address] [place] [address] [phone] Ast 24 U/L 10-35 Alt 26 U/L 6-29 Bilirubin,Total 1.0 mg/dL 0.2-1.2 Bilirubin,Direct 0.2 mg/dL < Or=0.2 Protein,Total 7.1 g/dL 6.1-8.1 Albumin 4.3 g/dL 3.6-5.1 Globulin,Calculated 2.8 g/dL 1.9-3.7 A/G Ratio 1.6 1.0-2.5 Comprehensive 12/21/2013 [facility] Glucose 101 mg/ dL 74-106 Metabolic Panel [address] [place] [address] [phone] BUN 15 mg/dL 7-18 Creatinine 0.9 mg/dL 0.6-1.3 Glom Filtration Rate, Estimate >60 mL/min >60 If >60 mL/min >60 36 BUN/Creat 16.6 ratio Sodium 140 mmol/L 136-145 Potassium 3.9 mmol/L 3.5-5.1 Chloride 108 mmol/L High 98-107 Carbon Dioxide 24 mmol/L 21-32 Anion Gap 12 mEq/L 8-16 Calcium 10.1 mg/dL 8.5-10.1 Total Protein 7.6 g/dL 6.4-8.2 Albumin 4.1 g/dL 3.4-5.0 Globulin 3.5 g/dL 1.9-4.3 Alb/Glob 1.2 ratio Bilirubin,Total 0.7 mg/dL 0.2-1.0 Sgot/Ast 21 U/L 15-37 SGPT/Alt 29 U/L 12-78 Alkaline Phosphatase 67 U/L 45-117 Laboratory test 12/21/2013 [facility] Thyroid Stim 1.87 uIU/mL 0.36-3.[address] [place] [place] [address] [phone] Free T4 0.92 ng/dL 0.76-1.46 Laboratory test 12/21/2013 [facility] Vitamin 44.5 30.0-100.0 [address] D,25-Hydroxy ng/mL [place] [id number] [phone] CBS W/Automated 12/21/2013 [facility] White Blood 4.0 K/uL 3.1-10.[address] [place] [address] [phone] Red Blood Count 3.97 M/uL 3.90-5.40 Hemoglobin 13.8 gm/dL 11.6-15.8 Hematocrit 39.8 % 36.0-46.1 Mean Cell Volume 100.3 fl High 80.9-99.0 Mean Corpuscular HGB 34.8 pg High 25.9-32.7 Mean Corpuscular HGB Conc 34.7 g/dL High 30.8-34.3 Platelet Count 232 K/uL 155-360 Red Cell Distri Width SD 43.4 fl 3-47 Red Cell Distri Width %CV 12.1 % 11.7-14.4 Mean Platelet Volume 11.5 fL 8.9-12.4 Neut% 61.9 % 40.4-72.8 Lymph % 25.9 % 17.0-46.1 [place] % 10.2 % 4.3-13.2 Eo% 1.5 % 0.0-6.6 Bas% 0.5 % 0.0-1.1 Neut# 2.49 K/uL 1.0-7.0 Lymph # 1.04 K/uL 0.8-3.4 [place] # 0.41 K/uL 0.3-0.9 Eos # 0.06 K/uL 0.0-0.5 Baso # 0.02 K/uL 0.0-0.1 Liver Function 12/21/2013 [facility] Total Protein 7.6 g/dL 6.4-8.[address] [place] [address] [phone] Albumin 4.1 g/dL 3.4-5.0 Globulin 3.5 g/dL 1.9-4.3 Alb/Glob 1.2 ratio Bilirubin,Total 0.7 mg/dL 0.2-1.0 Bilirubin,Direct 0.1 mg/dL 0.0-0.2 Bilirubin,Indirect 0.6 mg/dL 0.0-0.9 Sgot/Ast 21 U/L 15-37 SGPT/Alt 29 U/L 12-78 Alkaline Phosphatase 67 U/L 45-117 LDL Cholesterol 12/21/2013 [facility] Cholesterol 212 mg/dL < 200 [address] [place] [address] [phone] Triglycerides 72 mg/dL < 150 39 HDL Cholesterol 77 mg/dL > 40 40 LDL-Cholesterol 121 mg/dL < 100 41 Laboratory test 03/10/2013 [facility] Thyroid Stim 1.45 uIU/mL 0.49-4.[address] [place] [place] [address] [phone] Renin Plasma 0.40 ng/mL/hr . 42 Aldosterone 6.7 ng/dL 0.0-30.0 43 Basic Metabolic Panel 11/29/2012 [facility] Glucose 89 mg/dL 76-[address] [place] [address] [phone] BUN 17 mg/dL 5-23 Creatinine 0.8 mg/dL 0.5-1.4 Glom Filtration Rate, Estimate >60 mL/min >60 If >60 mL/min >60 44 BUN/Creat 21.2 ratio Sodium 139 mmol/L 136-145 Potassium 4.0 mmol/L 3.5-5.1 Chloride 107 mmol/L 98-107 Carbon Dioxide 25 mEq/L 18-29 Anion Gap 11 mEq/L 8-16 Calcium 8.7 mg/dL 8.5-10.1 CBS W/Automated 11/29/2012 [facility] White Blood 4.5 K/uL 3.1-10.[address] [place], [place] [id number] [phone] Red Blood Count 3.92 M/uL 3.90-5.40 Hemoglobin 13.3 gm/dL 11.6-15.8 Hematocrit 39.5 % 36.0-46.1 Mean Cell Volume 100.8 fl High 80.9-99.0 Mean Corpuscular HGB 33.9 pg High 25.9-32.7 Mean Corpuscular HGB Conc 33.7 g/dL 30.8-34.3 Platelet Count 215 K/uL 155-360 Red Cell Distri Width SD 44.6 fl 3-47 Red Cell Distri Width %CV 12.5 % 11.7-14.4 Mean Platelet Volume 11.6 fL 8.9-12.4 Neut% 58.7 % 40.4-72.8 Lymph % 30.8 % 17.0-46.1 [place] % 8.3 % 4.3-13.2 Eo% 1.8 % 0.0-6.6 Bas% 0.4 % 0.0-1.1 Neut# 2.61 K/uL 1.0-7.0 Lymph # 1.37 K/uL 0.8-3.4 [place] # 0.37 K/uL 0.3-0.9 Eos # 0.08 K/uL 0.0-0.5 Baso # 0.02 K/uL 0.0-0.1 Laboratory test 06/09/2012 [facility] Hemoglobin A1c 5.1 % 0.0-5.6 [address] [place] [address] [phone] Comprehensive 11/25/2011 [facility] Glucose 96 mg/dL 76-115 Metabolic Panel [address] [place] [address] [phone] BUN 14 mg/dL 5-23 Creatinine 0.9 mg/dL 0.5-1.4 Glom Filtration Rate, Estimate >60 mL/min >60 If >60 mL/min >60 46 BUN/Creat 15.5 ratio Sodium 140 mmol/L 136-145 Potassium 4.2 mmol/L 3.5-5.1 Chloride 106 mmol/L 98-107 Carbon Dioxide 25 mEq/L 18-29 Anion Gap 13 mEq/L 8-16 Calcium 9.0 mg/dL 8.5-10.1 Total Protein 7.5 g/dL 6.3-8.0 Albumin 4.1 g/dL 3.5-5.0 Globulin 3.4 g/dL 1.9-4.3 Alb/Glob 1.2 ratio Bilirubin,Total 0.6 mg/dL 0.2-1.2 Sgot/Ast 30 U/L 16-40 SGPT/Alt 39 U/L 30-65 Alkaline Phosphatase 64 U/L 50-136 LDL Cholesterol 11/25/2011 [facility] Cholesterol 198 mg/dL 120-[address] [place] [address] [phone] Triglycerides 52 mg/dL 16-231 HDL Cholesterol 68 mg/dL 29-83 LDL-Cholesterol 120 mg/dL 62-185 Liver Function 11/25/2011 [facility] Total Protein 7.5 g/dL 6.3-8.[address] [place] [address] [phone] Albumin 4.1 g/dL 3.5-5.0 Globulin 3.4 g/dL 1.9-4.3 Alb/Glob 1.2 ratio Bilirubin,Total 0.6 mg/dL 0.2-1.2 Bilirubin,Direct 0.2 mg/dL 0.1-0.4 Bilirubin,Indirect 0.4 mg/dL 0.0-0.9 Sgot/Ast 30 U/L 16-40 SGPT/Alt 39 U/L 30-65 Alkaline Phosphatase 64 U/L 50-136 Laboratory test 11/25/2011 [facility] Thyroid Stim 2.13 uIU/mL 0.49-4.[address] [place] [place] [address] [phone] Free T4 0.84 ng/dL 0.71-1.85 CBS W/Automated 11/25/2011 [facility] White Blood 3.9 K/uL 3.1-10.[address] [place], [place] [id number] [phone] Red Blood Count 3.98 M/uL 3.90-5.40 Hemoglobin 13.6 gm/dL 11.6-15.8 Hematocrit 39.9 % 36.0-46.1 Mean Cell Volume 100.3 fl High 80.9-99.0 Mean Corpuscular HGB 34.2 pg High 25.9-32.7 Mean Corpuscular HGB Conc 34.1 g/dL 30.8-34.3 Platelet Count 212 K/uL 155-360 Red Cell Distri Width SD 42.6 fl 3-47 Red Cell Distri Width %CV 11.8 % 11.7-14.4 Mean Platelet Volume 11.4 fL 8.9-12.4 Neut% 55.5 % 40.4-72.8 Lymph % 33.3 % 17.0-46.1 [place] % 8.9 % 4.3-13.2 Eo% 1.3 % 0.0-6.6 Bas% 1.0 % 0.0-1.1 Neut# 2.18 K/uL 1.0-7.0 Lymph # 1.31 K/uL 0.8-3.4 [place] # 0.35 K/uL 0.3-0.9 Eos # 0.05 K/uL 0.0-0.5 Baso # 0.04 K/uL 0.0-0.1 Basic Metabolic Panel 09/17/2011 [facility] Glucose 87 mg/dL 76-[address] [place], [place] [id number] [phone] BUN 12 mg/dL 5-23 Creatinine 0.7 mg/dL 0.5-1.4 Glom Filtration Rate, Estimate >60 mL/min >60 If >60 mL/min >60 47 BUN/Creat 17.1 ratio Sodium 141 mmol/L 136-145 Potassium 4.2 mmol/L 3.5-5.1 Chloride 108 mmol/L High 98-107 Carbon Dioxide 24 mEq/L 18-29 Anion Gap 13 mEq/L 8-16 Calcium 9.1 mg/dL 8.5-10.1 Laboratory test 09/17/2011 [facility] Uric Acid 4.4 mg/dL 2.1-7.[address] [place] [address] [phone] C-Reactive Protein,Quant < 2.9 mg/L 0.0-4.9 CBC 09/17/2011 [facility] White Blood Count 3.2 K/uL 3.1-10.[address] [place] [address] [phone] Red Blood Count 3.94 M/uL 3.90-5.40 Hemoglobin 13.4 gm/dL 11.6-15.8 Hematocrit 39.3 % 36.0-46.1 Mean Cell Volume 99.7 fl High 80.9-99.0 Mean Corpuscular HGB 34.0 pg High 25.9-32.7 Mean Corpuscular HGB Conc 34.1 g/dL 30.8-34.3 Platelet Count 212 K/uL 155-360 Red Cell Distri Width %CV 12.4 % 11.7-14.4 Mean Platelet Volume 11.8 fL 8.9-12.4 Laboratory test 09/17/2011 [facility] Sedimentation 8 mm/hr 0-[address] [place] [address] [phone] Laboratory test 05/26/2011 [facility] Vitamin 48.3 30.0-100 [address] D,25-Hydroxy ng/mL .0 [place] [address] [phone] Comprehensive 11/14/2010 [facility] Glucose 95 mg/dL 76-115 Metabolic Panel [address] [place] [address] [phone] BUN 17 mg/dL 5-23 Creatinine 1.0 mg/dL 0.5-1.4 Glom Filtration Rate, Estimate 60 mL/min >60 If >60 mL/min >60 49 BUN/Creat 17.0 ratio Sodium 140 mmol/L 136-145 Potassium 4.4 mmol/L 3.5-5.1 Chloride 104 mmol/L 98-107 Carbon Dioxide 26 mEq/L 18-29 Anion Gap 14 mEq/L 8-16 Calcium 9.9 mg/dL 8.5-10.1 Total Protein 7.3 g/dL 6.3-8.0 Albumin 4.0 g/dL 3.5-5.0 Globulin 3.3 g/dL 1.9-4.3 Alb/Glob 1.2 ratio Bilirubin,Total 0.9 mg/dL 0.2-1.2 Sgot/Ast 30 U/L 16-40 SGPT/Alt 37 U/L 30-65 Alkaline Phosphatase 57 U/L 50-136 Liver Function 11/14/2010 [facility] Total Protein 7.3 g/dL 6.3-8.[address] [place] [address] [phone] Albumin 4.0 g/dL 3.5-5.0 Bilirubin,Total 0.9 mg/dL 0.2-1.2 Bilirubin,Direct 0.2 mg/dL 0.1-0.4 Bilirubin,Indirect 0.7 mg/dL 0.0-0.9 Sgot/Ast 30 U/L 16-40 SGPT/Alt 37 U/L 30-65 Alkaline Phosphatase 57 U/L 50-136 Globulin 3.3 g/dL 1.9-4.3 Alb/Glob 1.2 ratio Laboratory test 11/14/2010 [facility] Thyroid Stim 1.59 uIU/mL 0.49-4.[address] [place] [address] [phone] Free T4 0.81 ng/dL 0.71-1.85 Direct LDL Cholesterol 118 mg/dL High 0-99 50 CBC W/Automated 11/14/2010 [facility] White Blood 3.9 K/uL 3.1-10.[address] [place] [address] [phone] Red Blood Count 4.03 M/uL 3.90-5.40 Hemoglobin 13.6 gm/dL 11.6-15.8 Hematocrit 40.1 % 36.0-46.1 Mean Cell Volume 99.5 fl High 80.9-99.0 Mean Corpuscular HGB 33.7 pg High 25.9-32.7 Mean Corpuscular HGB Conc 33.9 g/dL 30.8-34.3 Platelet Count 212 K/uL 155-360 Red Cell Distri Width %CV 11.8 % 11.7-14.4 Mean Platelet Volume 12.1 fL 8.9-12.4 Neut% 50.3 % 40.4-72.8 Lymph % 36.1 % 17.0-46.1 [place] % 10.5 % 4.3-13.2 Eo% 2.3 % 0.0-6.6 Bas% 0.8 % 0.0-1.1 Neut# 1.97 K/uL 1.0-7.0 Lymph # 1.41 K/uL 0.8-3.4 [place] # 0.41 K/uL 0.3-0.9 Eos # 0.09 K/uL 0.0-0.5 Baso # 0.03 K/uL 0.0-0.1 Red Cell Distri Width SD 42.5 fl 3-47 Basic Metabolic Panel 05/23/2010 [facility] Glucose 92 mg/dL 76-[address] [place], [place] [id number] [phone] BUN 14 mg/dL 5-23 Creatinine 0.8 mg/dL 0.5-1.4 Glom Filtration Rate, Estimate >60 mL/min >60 If >60 mL/min >60 51 BUN/Creat 17.5 Sodium 141 mEq/L 136-145 Potassium 5.0 mEq/L 3.5-5.1 Chloride 103 mEq/L 98-107 Carbon Dioxide 30 mEq/L 21-32 Anion Gap 13 mEq/L 8-16 Calcium 9.1 mg/dL 8.5-10.1 LDL Cholesterol 05/23/2010 [facility] Cholesterol 218 mg/dL High 120-[address] [place], [place] [id number] [phone] Triglycerides 54 mg/dL 0-210 HDL Cholesterol 63 mg/dL 32-96 LDL-Cholesterol 144 mg/dL 62-185 CBS W/Automated 05/23/2010 [facility] White Blood 4.0 K/uL 3.1-10.[address] [place], [place] [id number] [phone] Red Blood Count 4.30 M/uL 3.90-5.40 Hemoglobin 14.3 gm/dL 11.6-15.8 Hematocrit 42.1 % 36.0-46.1 Mean Cell Volume 97.9 fl 80.9-99.0 Mean Corpuscular HGB 33.3 pg High 25.9-32.7 Mean Corpuscular HGB Conc 34.0 g/dL 30.8-34.3 Platelet Count 247 K/uL 155-360 Red Cell Distri Width %CV 11.8 % 11.7-14.4 Mean Platelet Volume 11.4 fL 8.9-12.4 Neut% 48.7 % 40.4-72.8 Lymph % 37.2 % 17.0-46.1 [place] % 10.6 % 4.3-13.2 Eo% 3.0 % 0.0-6.6 Bas% 0.5 % 0.0-1.1 Neut# 1.92 K/uL 1.0-7.0 Lymph # 1.47 K/uL 0.8-3.4 [place] # 0.42 K/uL 0.3-0.9 Eos # 0.12 K/uL 0.0-0.5 Baso # 0.02 K/uL 0.0-0.1 Red Cell Distri Width SD 41.6 fl 3-47 Liver Function 11/19/2009 [facility] Total Protein 7.4 g/dL 6.3-8.[address] [place], [place] [address] [phone] Albumin 4.2 g/dL 3.5-5.0 Bilirubin,Total 0.7 mg/dL 0.2-1.2 Bilirubin,Direct 0.2 mg/dL 0.1-0.4 Bilirubin,Indirect 0.5 mg/dL 0.0-0.9 Sgot/Ast 31 U/L 16-40 SGPT/Alt 43 U/L 30-65 Alkaline Phosphatase 72 U/L 50-136 Globulin 3.2 gm/dL 1.9-4.3 Alb/Glob 1.3 Comprehensive 11/19/2009 [facility] Glucose 75 mg/dL Low 76-115 Metabolic Panel [address] [place], [place] [id number] [phone] BUN 16 mg/dL 5-23 Creatinine 0.8 mg/dL 0.5-1.4 Glom Filtration Rate, Estimate >60 mL/min >60 If >60 mL/min >60 52 BUN/Creat 20.0 Sodium 137 mEq/L 136-145 Potassium 4.0 mEq/L 3.5-5.1 Chloride 103 mEq/L 98-107 Carbon Dioxide 25 mEq/L 21-32 Anion Gap 13 mEq/L 8-16 Calcium 9.2 mg/dL 8.5-10.1 Total Protein 7.4 g/dL 6.3-8.0 Albumin 4.2 g/dL 3.5-5.0 Globulin 3.2 gm/dL 1.9-4.3 Alb/Glob 1.3 Bilirubin,Total 0.7 mg/dL 0.2-1.2 Sgot/Ast 31 U/L 16-40 SGPT/Alt 43 U/L 30-65 Alkaline Phosphatase 72 U/L 50-136 LDL Cholesterol 11/19/2009 [facility] Cholesterol 225 mg/dL High 120-[address] [place], [place] [id number] [phone] Triglycerides 37 mg/dL 0-210 HDL Cholesterol 84 mg/dL 32-96 LDL-Cholesterol 134 mg/dL 62-185 Laboratory test 11/19/2009 [facility] Glycohemoglobin A1c 5.0 % 4.8-6.0 [address] [place] [address] [phone] Vitamin D,25-Hydroxy 60.4 ng/mL 32.0-100.0 54 CBS W/Automated 11/19/2009 [facility] White Blood 6.4 K/uL 3.1-10.[address] [place], [place] [id number] [phone] Red Blood Count 4.10 M/uL 3.90-5.40 Hemoglobin 13.8 gm/dL 11.6-15.8 Hematocrit 41.0 % 36.0-46.1 Mean Cell Volume 100.0 fl High 80.9-99.0 Mean Corpuscular HGB 33.7 pg High 25.9-32.7 Mean Corpuscular HGB Conc 33.7 g/dL 30.8-34.3 Platelet Count 233 K/uL 155-360 Red Cell Distri Width %CV 12.8 % 11.7-14.4 Mean Platelet Volume 11.2 fL 8.9-12.4 Neut% 67.5 % 40.4-72.8 Lymph % 22.5 % 17.0-46.1 [place] % 8.6 % 4.3-13.2 Eo% 0.8 % 0.0-6.6 Bas% 0.6 % 0.0-1.1 Neut# 4.3 K/uL 1.0-7.0 Lymph # 1.4 K/uL 0.8-3.4 [place] # 0.6 K/uL 0.3-0.9 Eos # 0.1 K/uL 0.0-0.5 Baso # 0.0 K/uL 0.0-0.1 Red Cell Distri Width SD 45.9 fl 3-47 Laboratory test 11/19/2009 [facility] Thyroid Stim 1.62 uIU/mL 0.49-4.67 [address] Hormone [place], [place] [id number] [phone] Free T4 0.81 ng/dL 0.71-1.85 56 LDL Cholesterol 05/17/2009 [facility] Cholesterol 210 mg/dL High 120-[address] [place], [place] [id number] [phone] Triglycerides 36 mg/dL 0-210 HDL Cholesterol 78 mg/dL 32-96 LDL-Cholesterol 125 mg/dL 62-185 Liver Function 05/17/2009 [facility] Total Protein 7.7 g/dL 6.3-8.[address] [place], [place] [id number] [phone] Albumin 4.4 g/dL 3.5-5.0 Bilirubin,Total 0.4 mg/dL 0.2-1.2 Bilirubin,Direct 0.1 mg/dL 0.1-0.4 Bilirubin,Indirect 0.3 mg/dL 0.0-0.9 Sgot/Ast 39 U/L 16-40 SGPT/Alt 73 U/L High 30-65 Alkaline Phosphatase 139 U/L High 50-136 Globulin 3.3 gm/dL 1.9-4.3 Alb/Glob 1.3 Comprehensive 05/17/2009 [facility] Glucose 100 mg/ dL 76-115 Metabolic Panel [address] [place], [place] [id number] [phone] BUN 15 mg/dL 5-23 Creatinine 0.8 mg/dL 0.5-1.4 Glom Filtration Rate, Estimate >60 mL/min >60 If >60 mL/min >60 57 BUN/Creat 18.7 Sodium 139 mEq/L 136-145 Potassium 4.3 mEq/L 3.5-5.1 Chloride 101 mEq/L 98-107 Carbon Dioxide 30 mEq/L 21-32 Anion Gap 12 mEq/L 8-16 Calcium 9.2 mg/dL 8.5-10.1 Total Protein 7.7 g/dL 6.3-8.0 Albumin 4.4 g/dL 3.5-5.0 Globulin 3.3 gm/dL 1.9-4.3 Alb/Glob 1.3 Bilirubin,Total 0.4 mg/dL 0.2-1.2 Sgot/Ast 39 U/L 16-40 SGPT/Alt 73 U/L High 30-65 Alkaline Phosphatase 139 U/L High 50-136 TSH+Free T4 05/17/2009 [facility] Thyroid Stim 1.18 uIU/mL 0.49-4.67 ([place] & [address] Hormone [facility] [place] [place], [place] [id number] [phone] Free T4 0.87 ng/dL 0.71-1.85 CBS W/Automated 05/17/2009 [facility] White Blood 4.8 K/uL 3.1-10.[address] Count [place], [place] [address] [phone] Red Blood Count 3.95 M/uL 3.90-5.40 Hemoglobin 13.9 gm/dL 11.6-15.8 Hematocrit 40.3 % 36.0-46.1 Mean Cell Volume 102.0 fl High 80.9-99.0 Mean Corpuscular HGB 35.2 pg High 25.9-32.7 Mean Corpuscular HGB Conc 34.5 g/dL High 30.8-34.3 Platelet Count 241 K/uL 155-360 Red Cell Distri Width %CV 13.2 % 11.7-14.4 Mean Platelet Volume 11.1 fL 8.9-12.4 Neut% 59.0 % 40.4-72.8 Lymph % 27.4 % 17.0-46.1 [place] % 11.7 % 4.3-13.2 Eo% 1.3 % 0.0-6.6 Bas% 0.6 % 0.0-1.1 Neut# 2.8 K/uL 1.0-7.0 Lymph # 1.3 K/uL 0.8-3.4 [place] # 0.6 K/uL 0.3-0.9 Eos # 0.1 K/uL 0.0-0.5 Baso # 0.0 K/uL 0.0-0.1 Red Cell Distri Width SD 49 fl High 3-47 Basic Metabolic Panel 11/23/2007 [facility] Sodium 140 mmol/L 135-[address] [place] [address] [phone] Potassium 4.1 mmol/L 3.5-5.3 Chloride 106 mmol/L 98-110 Carbon Dioxide 24 mmol/L 21-33 Calcium 9.3 mg/dL 8.6-10.2 Glucose 101 mg/dL High 65-99 58 Urea Nitrogen 14 mg/dL 7-25 Creatinine 0.78 mg/dL 0.50-1.20 BUN/Creatinine Ratio 17.7 6-22 Egfr Non-Afr. [place] >60 ML/MIN/1.73M2 > Or=60 Egfr >60 ML/MIN/1.73M2 > Or=60 Lipid Panel 11/23/2007 [facility] Cholesterol 199 mg/dL 125-[address] [place] [address] [phone] HDL Cholesterol 80 mg/dL > Or=46 Cholesterol/HDL Ratio 2.5 < Or=5.0 LDL Chol,Calculated 110 mg/dL <130 59 Triglycerides 47 mg/dL <150 Culture,Urine,Voided 06/22/2007 [facility] URINE-CLEAN CATC [address] <SEE NOTE> [place] [address] [phone] Preliminary Report DNR Interim Report DNR Final Report DNR Organism #2 DNR Organism #3 DNR Organism #4 DNR 4399 DNR Lipid Panel 06/09/2007 [facility] Cholesterol 216 mg/dL High 125-[address] [place] [address] [phone] HDL Cholesterol 76 mg/dL > Or=40 61 Triglycerides 50 mg/dL <150 Cholesterol/HDL Ratio 2.8 < Or=5.0 LDL Chol,Calculated 130 mg/dL High <130 62 Laboratory test 06/09/2007 [facility] Hemoglobin A1c 5.2 % <6.[address] [place] [address] [phone] Basic Metabolic 06/09/2007 [facility] Sodium 141 mmol/L 135-[address] [place] [address] [phone] Potassium 4.3 mmol/L 3.5-5.3 Chloride 105 mmol/L 98-110 Carbon Dioxide 27 mmol/L 21-33 Calcium 9.9 mg/dL 8.6-10.2 Glucose 102 mg/dL High 65-99 63 Urea Nitrogen 14 mg/dL 7-25 Creatinine 0.85 mg/dL 0.50-1.20 BUN/Creatinine Ratio 16.7 6-22 Egfr Non-Afr. [place] >60 ML/MIN/1.7 > Or=60 Egfr >60 ML/MIN/1.7 > Or=60 Culture,Urine,Voided 02/10/2007 [facility] URINE-URETHRA [address] [place] [address] [phone] Preliminary Report DNR Interim Report DNR Final Report DNR Organism #2 DNR Organism #3 DNR Organism #4 DNR 4399 DNR Laboratory test 02/04/2007 [facility] CK,Total 72 U/L < Kc=[address] [place] [address] [phone] Lipid Panel 02/04/2007 [facility] Cholesterol 229 mg/dL High 125-[address] [place] [address] [phone] HDL Cholesterol 83 mg/dL > Or=40 64 Triglycerides 47 mg/dL <150 Cholesterol/HDL Ratio 2.8 < Or=5.0 LDL Chol,Calculated 137 mg/dL High <130 65 Hepatic Function 02/04/2007 [facility] Alkaline Phosphatase 60 U/L 33- [address] [place] [address] [phone] Ast 28 U/L 10-35 Alt 34 U/L 6-40 Bilirubin,Total 0.8 mg/dL 0.2-1.2 Bilirubin,Direct 0.2 mg/dL < Or=0.2 Protein,Total 7.5 g/dL 6.2-8.3 Albumin 4.6 g/dL 3.6-5.1 TSH & T4,Free 02/04/2007 [facility] TSH,3RD 2.11 mU/L 0.40-4.[address] [place] [address] [phone] T4,Free 1.0 ng/dL 0.8-1.8 CBC W/ Diff & PLT 02/04/2007 [facility] WBC 4.9 thous/L 3.8-10.[address] [place] [address] [phone] RBC 4.19 mill/L 3.80-5.10 Hemoglobin 14.5 g/dL 11.7-15.5 Hematocrit 41.8 % 35.0-45.0 MCV 99.8 FL 80.0-100.0 MCH 34.7 pg High 27.0-33.0 MCHC 34.8 g/dL 32.0-36.0 RDW 12.5 % 11.0-15.0 Platelet Count 241 thous/L 140-400 Platelet Sufficiency NORMAL Normal Neutrophils,Absolute 2490 cells/L 7240-6766 Bands,Absolute DNR cells/L 0-750 Metamyelocytes,Absolute DNR cells/L 0 Myelocytes,Absolute DNR cells/L 0 Promyelocytes,Absolute DNR cells/L 0 Lymphocytes,Absolute 2030 cells/L 850-3900 Monocytes,Absolute 360 cells/L 200-950 Eosinophils,Absolute 40 cells/L 15-500 Basophils,Absolute 30 cells/L 0-200 Blast Cells,Absolute DNR cells/L 0 Nucleated RBC,Absolute DNR cells/L 0 Total Neutrophils,% 50 % 38-80 Bands,% DNR % 0-10 Metamyelocytes,% DNR % Myelocytes,% DNR % Promyelocytes,% DNR % Total Lymphocytes,% 41 % 15-49 Monocytes,% 7 % 0-13 Eosinophils,% 1 % 0-8 Basophils,% 1 % 0-2 Blasts,% DNR % Nucleated RBC DNR /100WBC 0 RBC Morphology NORMAL Anisocytosis DNR Poikilocytosis DNR Microcytosis DNR Macrocytosis DNR Polychromasia DNR Hypochromasia DNR Target Cells DNR Basophilic Stippling DNR Comment DNR Comp Metabolic Panel 02/04/2007 [facility] Sodium 138 mmol/L 135-146 [address] [place] [address] [phone] Potassium 4.5 mmol/L 3.5-5.3 Chloride 104 mmol/L 98-110 Carbon Dioxide 27 mmol/L 21-33 Calcium 9.9 mg/dL 8.6-10.2 Alkaline Phosphatase 60 U/L 33-130 Ast 28 U/L 10-35 Alt 34 U/L 6-40 Bilirubin,Total 0.8 mg/dL 0.2-1.2 Glucose 103 mg/dL High 65-99 67 Urea Nitrogen 16 mg/dL 7-25 Creatinine 0.84 mg/dL 0.50-1.20 BUN/Creatinine Ratio 18.7 6-22 Protein,Total 7.5 g/dL 6.2-8.3 Albumin 4.6 g/dL 3.6-5.1 Globulin,Calculated 2.9 g/dL 2.2-3.9 A/G Ratio 1.6 1.0-2.1 Egfr Non-Afr. [place] >60 ML/MIN/1.7 > Or=60 Egfr >60 ML/MIN/1.7 > Or=60 CBC W/ Diff & PLT 10/09/2004 [facility] WBC 5.9 thous/L 3.8-10.8 [address] [place] [address] [phone] RBC 4.39 mill/L 3.80-5.10 Hemoglobin 15.1 g/dL 11.7-15.5 Hematocrit 44.1 % 35.0-45.0 MCV 100.3 FL High 80.0-100.0 MCH 34.5 pg High 27.0-33.0 MCHC 34.3 g/dL 32.0-36.0 RDW 13.0 % 11.0-15.0 Platelet Count 270 thous/L 140-400 Platelet Sufficiency NORMAL Neutrophils,Absolute 3930 cells/L 9397-1140 Bands,Absolute DNR cells/L 0-750 Metamyelocytes,Absolute DNR cells/L 0 Myelocytes,Absolute DNR cells/L 0 Promyelocytes,Absolute DNR cells/L 0 Lymphocytes,Absolute 1480 cells/L 850-3900 Monocytes,Absolute 360 cells/L 200-950 Eosinophils,Absolute 90 cells/L 15-500 Basophils,Absolute 20 cells/L 0-200 Blast Cells,Absolute DNR cells/L 0 Nucleated RBC,Absolute DNR cells/L 0 Total Neutrophils,% 67 % 38-80 Bands,% DNR % 0-10 Metamyelocytes,% DNR % Myelocytes,% DNR % Promyelocytes,% DNR % Total Lymphocytes,% 25 % 15-49 Monocytes,% 6 % 0-13 Eosinophils,% 2 % 0-8 Basophils,% 0 % 0-2 Blasts,% DNR % Nucleated RBC DNR /100WBC 0 RBC Morphology NORMAL Anisocytosis DNR Poikilocytosis DNR Microcytosis DNR Macrocytosis DNR Polychromasia DNR Hypochromasia DNR Target Cells DNR Basophilic Stippling DNR Comment DNR Comp Metabolic Panel 10/09/2004 [facility] Sodium 142 mmol/L 135-146 [address] [address] [phone] Potassium 3.8 mmol/L 3.5-5.3 Chloride 105 mmol/L 98-110 Carbon Dioxide 24 mmol/L 21-33 Calcium 10.2 mg/dL 8.5-10.4 Alkaline Phosphatase 153 U/L High 20-125 Ast 80 U/L High 2-35 Alt 171 U/L High 2-40 Bilirubin,Total 0.8 mg/dL 0.2-1.3 Glucose 92 mg/dL 65-99 68 Urea Nitrogen 16 mg/dL 7-25 Creatinine 0.9 mg/dL 0.5-1.2 BUN/Creatinine Ratio 16.7 6-25 Protein,Total 8.4 g/dL High 6.0-8.3 Albumin 5.0 g/dL High 3.5-4.9 Globulin,Calculated 3.4 g/dL 2.2-4.2 A/G Ratio 1.5 0.8-2.0 GFR Estimated >60 ML/MIN/1.7 >59 69 Lipid Panel 10/09/2004 [facility] HDL Cholesterol 87 mg/dL >40 [address] [facility] [place] [id number] [phone] Cholesterol 288 mg/dL High <200 Triglycerides 115 mg/dL <150 Cholesterol/HDL Ratio 3.3 <4.4 LDL Chol,Calculated 178 mg/dL High <130 71 Laboratory test finding 10/09/2004 [facility] TSH 1.43 mU/L 0.40-5.50 [address] [place], [place] [id number] [phone] 1 FASTING 2 Reference range for high altitude clients: 18-30 mmol/L 3 GLUCOSE REFERENCE RANGE BASED ON FASTING SPECIMEN. 4 The upper reference limit for Creatinine is approximately 13% higher for people identified as -[place]. 5 WAITING FOR ORDER 6 Reference Guidelines*: Desirable: ........... < 200 mg/dL Borderline High: ..... 200-239 mg/dL High: ................ >=240 mg/dL * The National Cholesterol Education Program (NCEP) 7 Reference Guidelines*: Normal: ............. < 150 mg/dL Borderline High: .... 150-199 mg/dL High: ............... 200-499 mg/dL Very High: .......... > 500 mg/dL * Source: National Cholesterol Education Program (NCEP) 8 Reference Guidelines*: Low HDL: ..... < 40 mg/dL Normal: ..... 40-60 mg/dL Desirable: ... > 60 mg/dL *The National Cholesterol Education Program(NCEP) 9 Reference Guidelines*: Optimal:........... <100 mg/dL Near Optimal....... 100-129 mg/dL Borderline High.... 130-159 mg/dL High............... 160-189 mg/dL Very High.......... >=190 mg/dL * Source: National Cholesterol Education Program (NCEP) 10 Note: Persistent reduction for 3 months or more in an eGFR <60 mL/min/1.73 m2 defines CKD. Patients with eGFR values >/=60 mL/min/1.73 m2 may also have CKD if evidence of persistent proteinuria is present. The original MDRD equation for estimated GFR is not valid for patients less than 18 years of age. Additional information may be found at www.kdoqi.org. 11 FASTING 12 GLUCOSE REFERENCE RANGE BASED ON FASTING SPECIMEN. 13 The upper reference limit for Creatinine is approximately 13% higher for people identified as -[place]. 14 Relative blood cell counts (%) should be compared with absolute cell counts (cells/mcL). Relative counts may not be clinically meaningful if the absolute count of one or more cell type is decreased. Reference ranges for relative cell counts derived from: A Manual of Laboratory and Diagnostics Tests, 9th Ed, [employer], 2015. Pediatric Reference Intervals, 7th Ed, [employer], 2011. 15 GLUCOSE REFERENCE RANGE BASED ON FASTING SPECIMEN. 16 The upper reference limit for Creatinine is approximately 13% higher for people identified as -[place]. 17 GLUCOSE REFERENCE RANGE BASED ON FASTING SPECIMEN. 18 The upper reference limit for Creatinine is approximately 13% higher for people identified as -[place]. 19 REFERENCE RANGES BELOW ARE APPLICABLE TO FEMALES FIRST TRIMESTER - 0.26 - 2.66 mIU/L SECOND TRIMESTER - 0.55 - 2.73 mIU/L THIRD TRIMESTER - 0.43 - 2.91 mIU/L 20 Relative blood cell counts (%) should be compared with absolute cell counts (cells/mcL). Relative counts may not be clinically meaningful if the absolute count of one or more cell type is decreased. Reference ranges for relative cell counts derived from: A Manual of Laboratory and Diagnostics Tests, 9th Ed, [employer], 2015. Pediatric Reference Intervals, 7th Ed, [employer], 2011. 21 LDL-CHOLESTEROL RISK CATEGORY* GOAL VERY HIGH (E.G. DIABETES + CVD) <70 MG/DL HIGH (DIABETICS; CHD RISK EQUIVALENTS) <100 MG/DL MODERATELY HIGH (MULTIPLE(2+) RISK FACTORS) <130 MG/DL 0 TO 1 RISK FACTORS <160 MG/DL * NCEP REPORT. CIRCULATION 2004; 110: 227-239 22 Target for non-HDL cholesterol is 30 mg/dL higher than LDL cholesterol target. 23 WE RECEIVED YOUR HANDWRITTEN TEST ORDER FOR A CHEMISTRY PANEL CONTAINING 14 OR MORE ANALYTES. WE PERFORMED THE AMA DEFINED COMPREHENSIVE METABOLIC PANEL. IF THIS IS NOT WHAT YOU INTENDED TO ORDER, PLEASE CONTACT YOUR LOCAL PBX TECHNICIAN IMMEDIATELY AT SO THAT WE CAN ADJUST OUR BILLING APPROPRIATELY. YOU MAY ALSO INQUIRE ABOUT ALTERNATIVE OR ADDITIONAL TESTING. 24 Vitamin supplementation within 24 hours prior to blood draw may affect the accuracy of the results. This test was developed and its analytical performance characteristics have been determined by [facility] [place]. It has not been cleared or approved by the U.S. Food and Drug Administration. This assay has been validated pursuant to the CLIA regulations and is used for clinical purposes. 25 GLUCOSE REFERENCE RANGE BASED ON FASTING SPECIMEN. 26 The upper reference limit for Creatinine is approximately 13% higher for people identified as -[place]. 27 WE RECEIVED YOUR HANDWRITTEN TEST ORDER FOR A CHEMISTRY PANEL CONTAINING 14 OR MORE ANALYTES. WE PERFORMED THE AMA DEFINED COMPREHENSIVE METABOLIC PANEL. IF THIS IS NOT WHAT YOU INTENDED TO ORDER, PLEASE CONTACT YOUR LOCAL PBX TECHNICIAN IMMEDIATELY AT SO THAT WE CAN ADJUST OUR BILLING APPROPRIATELY. YOU MAY ALSO INQUIRE ABOUT ALTERNATIVE OR ADDITIONAL TESTING. 28 GLUCOSE REFERENCE RANGE BASED ON FASTING SPECIMEN. 29 The upper reference limit for Creatinine is approximately 13% higher for people identified as -[place]. 30 REFERENCE RANGES BELOW ARE APPLICABLE TO FEMALES FIRST TRIMESTER - 0.26 - 2.66 mIU/L SECOND TRIMESTER - 0.55 - 2.73 mIU/L THIRD TRIMESTER - 0.43 - 2.91 mIU/L 31 GLUCOSE REFERENCE RANGE BASED ON FASTING SPECIMEN. 32 The upper reference limit for Creatinine is approximately 13% higher for people identified as -[place]. 33 Relative blood cell counts (%) should be compared with absolute cell counts (cells/mcL). Relative counts may not be clinically meaningful if the absolute count of one or more cell type is decreased. Reference ranges for relative cell counts derived from: A Manual of Laboratory and Diagnostics Tests, 9th Ed, [employer]her, 2015. Pediatric Reference Intervals, 7th Ed, [facility], 2011. 34 LDL-CHOLESTEROL RISK CATEGORY* GOAL VERY HIGH (E.G. DIABETES + CVD) <70 MG/DL HIGH (DIABETICS; CHD RISK EQUIVALENTS) <100 MG/DL MODERATELY HIGH (MULTIPLE(2+) RISK FACTORS) <130 MG/DL 0 TO 1 RISK FACTORS <160 MG/DL * NCEP REPORT. CIRCULATION 2004; 110: 227-239 35 Target for non-HDL cholesterol is 30 mg/dL higher than LDL cholesterol target. 36 Note: Persistent reduction for 3 months or more in an eGFR <60 mL/min/1.73 m2 defines CKD. Patients with eGFR values >/=60 mL/min/1.73 m2 may also have CKD if evidence of persistent proteinuria is present. The original MDRD equation for estimated GFR is not valid for patients less than 18 years of age. Additional information may be found at www.kdoqi.org. 37 Vitamin D deficiency has been defined by the [place] [employer] and an Endocrine Society practice guideline as a level of serum 25-OH vitamin D less than 20 ng/mL (1,2). The Endocrine Society went on to further define vitamin D insufficiency as a level between 21 and 29 ng/mL (2). 1. IOM ([place] [employer]). 2010. Dietary reference intakes for calcium and D. [place]: The National Academies Press. 2. Vance MF, Sherita RESTREPO, Jah LEWIS, et al. Evaluation, treatment, and prevention of vitamin D deficiency: an Endocrine Society clinical practice guideline. JCEM. 2010; 96(7):1911-30. Performed at: - [facility] [id number] Unemployment Insurance Hearing Officer: Aparna Mullen MD, Phone: [phone] 38 Reference Guidelines*: Desirable: ........... < 200 mg/dL Borderline High: ..... 200-239 mg/dL High: ................ >=240 mg/dL * The National Cholesterol Education Program (NCEP) 39 Reference Guidelines*: Normal: ............. < 150 mg/dL Borderline High: .... 150-199 mg/dL High: ............... 200-499 mg/dL Very High: .......... > 500 mg/dL * Source: National Cholesterol Education Program (NCEP) 40 Reference Guidelines*: Low HDL: ..... < 40 mg/dL Normal: ..... 40-60 mg/dL Desirable: ... > 60 mg/dL *The National Cholesterol Education Program(NCEP) 41 Reference Guidelines*: Optimal:........... <100 mg/dL Near Optimal....... 100-129 mg/dL Borderline High.... 130-159 mg/dL High............... 160-189 mg/dL Very High.......... >=190 mg/dL * Source: National Cholesterol Education Program (NCEP) 42 Adult Normal Salt Intake: Upright 1.31 - 3.95 Supine 0.15 - 2.33 Salt Excretion (Na mEq/24 hr): Na=0 - 30 8.82 - 23.86 Na=30 - 75 4.09 - 7.73 Na=75 - 150 1.44 - 2.80 Na=>150 0.39 - 1.31 43 Performed at: [address] [id number] Unemployment Insurance Hearing Officer: Sudhir Koch MD, Phone: [phone] 44 Note: Persistent reduction for 3 months or more in an eGFR <60 mL/min/1.73 m2 defines CKD. Patients with eGFR values >/=60 mL/min/1.73 m2 may also have CKD if evidence of persistent proteinuria is present. The original MDRD equation for estimated GFR is not valid for patients less than 18 years of age. Additional information may be found at www.[email or web address]. 45 A1C VALUE(% OF TOTAL HEMOGLOBIN) INTERPRETATION < 5.7 DECREASED RISK OF DIABETES 5.7 - 6.0 INCREASED RISK OF DIABETES 6.1 - 6.4 HIGHER RISK OF DIABETES > OR=6.5 CONSISTENT WITH DIABETES 46 Note: Persistent reduction for 3 months or more in an eGFR <60 mL/min/1.73 m2 defines CKD. Patients with eGFR values >/=60 mL/min/1.73 m2 may also have CKD if evidence of persistent proteinuria is present. The original MDRD equation for estimated GFR is not valid for patients less than 18 years of age. Additional information may be found at www.[email or web address]. 47 Note: Persistent reduction for 3 months or more in an eGFR <60 mL/min/1.73 m2 defines CKD. Patients with eGFR values >/=60 mL/min/1.73 m2 may also have CKD if evidence of persistent proteinuria is present. The original MDRD equation for estimated GFR is not valid for patients less than 18 years of age. Additional information may be found at www.[email or web address]. 48 Vitamin D deficiency has been defined by the [place] [employer] and an Endocrine Society practice guideline as a level of serum 25-OH vitamin D less than 20 ng/mL (1,2). The Endocrine Society went on to further define vitamin D insufficiency as a level between 21 and 29 ng/mL (2). 1. IOM ([place] [employer]). 2010. Dietary reference intakes for calcium and D. [place]: The National Academies Press. 2. Vance MF, Sherita [place], Jah LEWIS, et al. Evaluation, treatment, and prevention of vitamin D deficiency: an Endocrine Society clinical practice guideline. JCEM. 2010; 96(7):1911-30. Performed at: RN - [facility] [address] [id number] Unemployment Insurance Hearing Officer: Erik Peter MD, Phone: [phone] 49 Note: Persistent reduction for 3 months or more in an eGFR <60 mL/min/1.73 m2 defines CKD. Patients with eGFR values >/=60 mL/min/1.73 m2 may also have CKD if evidence of persistent proteinuria is present. The original MDRD equation for estimated GFR is not valid for patients less than 18 years of age. Additional information may be found at www.[email or web address]. 50 Performed at: - [facility] [address] [id number] Unemployment Insurance Hearing Officer: Erik Peter MD, Phone: [phone] 51 Note: Persistent reduction for 3 months or more in an eGFR <60 mL/min/1.73 m2 defines CKD. Patients with eGFR values >/=60 mL/min/1.73 m2 may also have CKD if evidence of persistent proteinuria is present. The original MDRD equation for estimated GFR is not valid for patients less than 18 years of age. Additional information may be found at www.[email or web address]. 52 Note: Persistent reduction for 3 months or more in an eGFR <60 mL/min/1.73 m2 defines CKD. Patients with eGFR values >/=60 mL/min/1.73 m2 may also have CKD if evidence of persistent proteinuria is present. The original MDRD equation for estimated GFR is not valid for patients less than 18 years of age. Additional information may be found at www.[email or web address]. 53 Current guidelines recommend a treatment goal of <7% for diabetic patients. This method will measure glycosylated hemoglobin variants, HbS, HbG, HbH, HbWayne, HbC, HbE, etc. Other hemoglobin- opathies may give incorrect results with this test. Note change in expected values for healthy individuals 54 Recent studies consider the lower limit of 32.0 ng/mL to be a threshold for optimal health. Asher RAMIREZ. J Nutr. 2004;135(2):317-22. Performed at: - [facility] [id number] Unemployment Insurance Hearing Officer: Erik Peter MD, Phone: [phone] QUERY: @[facility] Pat ID: [id number] QUERY: @EMR Req #: [phone] [phone] QUERY: @EMR Pat ID: [id number] QUERY: @EMR Req #: [id number] [phone] Note: Persistent reduction for 3 months or more in an eGFR <60 mL/min/1.73 m2 defines CKD. Patients with eGFR values >/=60 mL/min/1.73 m2 may also have CKD if evidence of persistent proteinuria is present. The original MDRD equation for estimated GFR is not valid for patients less than 18 years of age. Additional information may be found at [email or web address]. 58 GLUCOSE REFERENCE RANGE BASED ON FASTING SPECIMEN. 59 LDL-CHOLESTEROL RISK CATEGORY* GOAL VERY HIGH (E.G. DIABETES + CVD) <70 MG/DL HIGH (DIABETICS; CHD RISK EQUIVALENTS) <100 MG/DL MODERATELY HIGH (MULTIPLE(2+) RISK FACTORS) <130 MG/DL 0 TO 1 RISK FACTORS <160 MG/DL * NCEP REPORT. CIRCULATION 2004; 110: 227-239 60 URINE-CLEAN CATCH 61 HDL REFERENCE RANGES ADULTS (20 YEARS & OLDER) DESIRABLE: > OR=60 MG/DL HIGHER RISK: <40 MG/DL 62 LDL-CHOLESTEROL RISK CATEGORY* GOAL VERY HIGH (E.G. DIABETES + CVD) <70 MG/DL HIGH (DIABETICS; CHD RISK EQUIVALENTS) <100 MG/DL MODERATELY HIGH (MULTIPLE(2+) RISK FACTORS) <130 MG/DL 0 TO 1 RISK FACTORS <160 MG/DL * NCEP REPORT. CIRCULATION 2004; 110: 227-239 63 GLUCOSE REFERENCE RANGE BASED ON FASTING SPECIMEN. 64 HDL REFERENCE RANGES ADULTS (20 YEARS & OLDER) DESIRABLE: > OR=60 MG/DL HIGHER RISK: <40 MG/DL 65 LDL-CHOLESTEROL RISK CATEGORY* GOAL VERY HIGH (E.G. DIABETES + CVD) <70 MG/DL HIGH (DIABETICS; CHD RISK EQUIVALENTS) <100 MG/DL MODERATELY HIGH (MULTIPLE(2+) RISK FACTORS) <130 MG/DL 0 TO 1 RISK FACTORS <160 MG/DL * NCEP REPORT. CIRCULATION 2004; 110: 227-239 66 TSH REFERENCE RANGE: FIRST TRIMESTER - 0.20 - 4.70 mU/L SECOND TRIMESTER - 0.30 - 4.10 mU/L THIRD TRIMESTER - 0.40 - 2.70 mU/L 67 GLUCOSE REFERENCE RANGE BASED ON FASTING SPECIMEN. 68 GLUCOSE REFERENCE RANGE BASED ON FASTING SPECIMEN. 69 THE GFR ESTIMATE IS NOT ADJUSTED FOR RACE, IF THE PATIENT'S RACE IS -INDONESIAN, THE GFR ESTIMATE MUST BE MULTIPLIED BY A FACTOR OF 1.21. 70 HDL REFERENCE RANGES ADULTS (20 YEARS & OLDER) DESIRABLE: > OR=60 MG/DL HIGHER RISK: <40 MG/DL 71 LDL-CHOLESTEROL RISK CATEGORY* GOAL VERY HIGH (E.G. DIABETES + CVD) <70 MG/DL HIGH (DIABETICS; CHD RISK EQUIVALENTS) <100 MG/DL MODERATELY HIGH (MULTIPLE(2+) RISK FACTORS) <130 MG/DL 0 TO 1 RISK FACTORS <160 MG/DL * NCEP REPORT. CIRCULATION 2004; 110: 227-239 72 TSH REFERENCE RANGE: FIRST TRIMESTER - 0.30 - 4.50 mU/L SECOND TRIMESTER - 0.50 - 4.60 mU/L THIRD TRIMESTER - 0.80 - 5.20 mU/L Procedures Date Code Description Status 01/06/2018 59024 EKG-Tracing & Report Completed 12/22/2017 89298 Non-Invcorrotid/Comp /Bilat Study Completed 12/21/2017 83326 Echocardiography Completed 10/23/2016 94611 EKG-Tracing & Report Completed 05/22/2016 50281 EKG-Tracing & Report Completed 12/24/2015 [id number] Mammogram Completed 08/30/2014 17441 EKG-Tracing & Report Completed 03/23/2014 [id number] Colonoscopy Completed 12/26/2013 89303 EKG-Tracing & Report Completed 06/03/2012 [id number] Bone Mineral Density Test Completed 06/03/2012 87014 Bone Density Completed 11/26/2011 41212 EKG-Tracing & Report Completed 11/25/2011 32177 Spirometry Graphic Record/Max Voluntary Vent Completed 11/25/2011 43030 Holter Monitor Office Completed 11/24/2011 90677 Non-Invcorrotid/Comp /Bilat Study Completed 11/24/2011 31738 Echocardiography Completed 05/30/2010 06722 Bone Density Completed 11/19/2009 94531 EKG-Tracing & Report Completed 11/19/2009 16094 Echocardiography Completed 11/19/2009 28437 Non-Invcorrotid/Comp /Bilat Study Completed 11/14/2008 80466 Non-Invcorrotid/Comp /Bilat Study Completed 11/14/2008 80027 Echocardiography Completed 11/16/2007 47194 Non-Invcorrotid/Comp /Bilat Study Completed 11/16/2007 23904 Doppler Color Flow Velocity Completed 11/16/2007 31993 Doppler/ECHO Completed 11/16/2007 49997 ECHO-2D W/Wo M-Mode Completed 11/16/2007 62594 Bone Density Completed 02/07/2005 22537 Non-Invcorrotid/Comp /Bilat Study Completed 02/07/2005 31226 Doppler Color Flow Velocity Completed 02/07/2005 53891 Doppler/ECHO Completed 02/07/2005 35117 ECHO-2D W/Wo M-Mode Completed 07/26/2003 04456 EKG-Tracing & Report Completed Encounters Type Date Location Provider Dx Diagnosis Office Visit 07/20/2018 9:00a Main Office Daniele Oakes MD E78.5 Hyperlipidemia, unspecified I11.9 Hypertensive heart disease without heart failure M15.9 Polyosteoarthritis, unspecified K21.9 Gastro-esophageal reflux disease without esophagitis Office Visit 01/19/2018 12:45p Main Office Daniele Oakes MD I11.9 Hypertensive heart disease without heart failure E78.5 Hyperlipidemia, unspecified Z00.00 Encntr for general adult medical exam w/o abnormal findings M15.9 Polyosteoarthritis, unspecified K21.9 Gastro-esophageal reflux disease without esophagitis Office Visit 10/29/2017 1:00p Main Office Daniele Oakes MD M54.6 Pain in thoracic spine Office Visit 10/13/2017 8:45a Main Office Daniele Oakes MD I11.9 Hypertensive heart disease without heart failure M15.9 Polyosteoarthritis, unspecified K21.9 Gastro-esophageal reflux disease without esophagitis Z23 Encounter for immunization Office Visit 06/09/2017 8:45a Main Office Alvaro Wilson5.9 MD Florentino unspecified I11.9 Hypertensive heart disease without heart failure Office Visit 04/03/2017 9:00a Main Office Daniele Oakes MD L03.90 Cellulitis , unspecified Office Visit 11/11/2016 4:15p Main Office Daniele Oakes MD M15.9 Polyosteoarthritis, unspecified Z23 Encounter for immunization I11.9 Hypertensive heart disease without heart failure Office Visit 09/18/2016 10:00a Main Office Daniele Oakes MD I11.9 Hypertensive heart disease without heart failure K21.9 Gastro-esophageal reflux disease without esophagitis M15.9 Polyosteoarthritis, unspecified Office Visit 05/29/2016 12:45p Main Office Daniele Oakes K21.9 Gastro- esophageal reflux MD disease without esophagitis I11.9 Hypertensive heart disease without heart failure M15.9 Polyosteoarthritis, unspecified Office Visit 03/21/2016 8:30a Main Office Daniele Oakes K21.9 Gastro- esophageal reflux MD disease without esophagitis I11.9 Hypertensive heart disease without heart failure M15.9 Polyosteoarthritis, unspecified Office Visit 12/04/2015 1:00p Main Office Daniele Oakes MD I15.8 Other secondary hypertension K21.9 Gastro-esophageal reflux disease without esophagitis Z23 Encounter for immunization Office Visit 07/12/2015 3:15p Main Office Daniele Oakes MD I15.8 Other secondary hypertension Office Visit 05/29/2015 9:30a Main Office Daniele Oakes MD E66.9 Obesity, unspecified K22.2 Esophageal obstruction K21.9 Gastro-esophageal reflux disease without esophagitis Z00.00 Encntr for general adult medical exam w/o abnormal findings S82.102D Unsp fx upper end of l tibia, subs for clos fx w routn heal L30.9 Dermatitis, unspecified Office Visit 02/14/2015 8:30p Main Office Daniele Oakes MD E66.9 Obesity, unspecified Z23 Encounter for immunization Office Visit 10/04/2014 4:15p Main Office Daniele Oakes MD 278.00 Obesity Unspec GENERAL General Office Visit 09/08/2014 4:00p Main Office Daniele Oakes MD 278.00 Obesity Unspec Office Visit 08/09/2014 2:30p Main Office Daniele Oakes MD 278.00 Obesity Unspec GENERAL General Office Visit 07/19/2014 7:30p Main Office Daniele Oakes MD 278.00 Obesity Unspec GENERAL General Office Visit 06/16/2014 3:00p Main Office Daniele Oakes MD 278.00 Obesity Unspec 715.90 Degenerative Joint Disease Genlzd Or Localzd Site Unspec GENERAL General Office Visit 05/17/2014 3:15p Main Office Daniele Oakes MD 278.00 Obesity Unspec 530.3 Esophageal Stricture & Stenosis 715.90 Degenerative Joint Disease Genlzd Or Localzd Site Unspec 401.9 Hypertension Unspec GENERAL General Office Visit 04/12/2014 8:00p Main Office Daniele Oakes MD 530.3 Esophageal Stricture & Stenosis 278.00 Obesity Unspec 715.90 Degenerative Joint Disease Genlzd Or Localzd Site Unspec GENERAL General Office Visit 03/24/2014 3:15p Main Office Daniele Oakes MD 530.3 Esophageal Stricture & Stenosis 278.00 Obesity Unspec GENERAL General Office Visit 02/22/2014 1:30p Main Office Daniele Oakes MD 278.00 Obesity Unspec 401.9 Hypertension Unspec GENERAL General Office Visit 01/26/2014 9:45a Main Office Daniele Oakes MD 278.00 Obesity Unspec 401.9 Hypertension Unspec GENERAL General Office Visit 01/12/2014 1:30p Main Office Daniele Oakes MD 278.00 Obesity Unspec 401.9 Hypertension Unspec GENERAL General Office Visit 12/28/2013 10:15a Main Office Daniele Oakes MD 401.9 Hypertension Unspec 715.90 Degenerative Joint Disease Genlzd Or Localzd Site Unspec 530.81 Esophageal Reflux V72.0 Examination Eyes & Vision V72.2 Examination Dental V70.0 Examination General Medical Routine AT Health Care Facility V04.81 Need For Prophylactic Vaccination & Inoculation/Influenza GENERAL General V03.82 Streptococcus Pneumoniae Vaccination Spec Other Office Visit 09/19/2013 12:15p Main Office Daniele Oakes MD 401.9 Hypertension Unspec 715.90 Degenerative Joint Disease Genlzd Or Localzd Site Unspec GENERAL General Office Visit 06/13/2013 10:30a Main Office Daniele Oakes MD 401.9 Hypertension Unspec 715.90 Degenerative Joint Disease Genlzd Or Localzd Site Unspec GENERAL General Office Visit 04/05/2013 12:00p Main Office Daniele Oakes MD 401.9 Hypertension Unspec GENERAL General Office Visit 03/21/2013 8:45a Main Office Daniele Oakes MD 401.9 Hypertension Unspec GENERAL General Office Visit 03/08/2013 4:15p Main Office Daniele Oakes MD 401.9 Hypertension Unspec GENERAL General Office Visit 03/03/2013 12:00p Main Office Gracie Stafford 401.9 Hypertension Unspec M.D. Office Visit 02/25/2013 8:30a Main Office Daniele Oakes MD 401.9 Hypertension Unspec GENERAL General Office Visit 02/23/2013 3:15p Main Office Daniele Oakes MD 401.9 Hypertension Unspec 308.9 Stress Reaction Unspec Acute GENERAL General Office Visit 12/14/2012 11:30a Main Office Daniele Oakes MD 272.4 Hyperlipidemia Other Unspec 424.0 Mitral Valve Disorder 715.90 Degenerative Joint Disease Genlzd Or Localzd Site Unspec V72.0 Examination Eyes & Vision V72.2 Examination Dental V70.0 Examination General Medical Routine AT Health Care Facility 530.3 Esophageal Stricture & Stenosis V04.81 Need For Prophylactic Vaccination & Inoculation/Influenza GENERAL General Office Visit 11/08/2012 3:30p Main Office Daniele Oakes MD 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 723.1 Cervicalgia GENERAL General Office Visit 06/11/2012 11:30a Main Office Daniele Oakes MD 719.46 Pain Joint Lower Leg 790.21 Impaired Fasting Glucose 530.3 Esophageal Stricture & Stenosis GENERAL General Office Visit 06/09/2012 2:00p Main Office Daniele Oakes MD 790.21 Impaired Fasting Glucose 719.46 Pain Joint Lower Leg 530.3 Esophageal Stricture & Stenosis 530.3 Esophageal Stricture & Stenosis 530.3 Esophageal Stricture & Stenosis GENERAL General Office Visit 06/03/2012 10:00a Main Office Daniele Oakes MD 787.22 Dysphagia, Oropharyngeal Phase 402.10 Hypertensive Heart Disease Benign W/O Heart Failure 272.4 Hyperlipidemia Other Unspec GENERAL General Office Visit 12/23/2011 12:00p Main Office Daniele Oakes MD 424.0 Mitral Valve Disorder 715.90 Degenerative Joint Disease Genlzd Or Localzd Site Unspec V72.0 Examination Eyes & Vision V72.2 Examination Dental 272.4 Hyperlipidemia Other Unspec V70.0 Examination General Medical Routine AT Health Care Facility 402.10 Hypertensive Heart Disease Benign W/O Heart Failure 794.31 Electrocardiogram (ECG) (EKG) Abnormal GENERAL General Office Visit 2011 3:00p Main Office Daniele Oakes MD 719.07 Effusion Joint Ankle & Foot V04.81 Need For Prophylactic Vaccination & Inoculation/Influenza GENERAL General Office Visit 09/24/2011 10:30a Main Office Daniele Oakes MD 715.90 Degenerative Joint Disease Genlzd Or Localzd Site Unspec GENERAL General Office Visit 09/16/2011 3:30p Main Office Daniele Oakes MD 715.90 Degenerative Joint Disease Genlzd Or Localzd Site Unspec GENERAL General Office Visit 06/02/2011 10:00a Main Office Daniele Oakes MD 530.11 Esophagitis Reflux 268.9 Vitamin D Deficiency Unspec 424.0 Mitral Valve Disorder 715.90 Degenerative Joint Disease Genlzd Or Localzd Site Unspec V06.5 Tetanus Diphtheria (DT) GENERAL General Office Visit 12/30/2010 11:30a Main Office Daniele Oakes MD V58.32 Encounter For Removal Of Sutures/[place] GENERAL General Office Visit 11/28/2010 11:00a Main Office Daniele Oakes MD 530.11 Esophagitis Reflux 268.9 Vitamin D Deficiency Unspec V72.0 Examination Eyes & Vision V04.81 Need For Prophylactic Vaccination & Inoculation/Influenza 424.0 Mitral Valve Disorder 715.90 Degenerative Joint Disease Genlzd Or Localzd Site Unspec GENERAL General Office Visit 05/30/2010 3:00p Main Office Daniele Oakes MD 530.11 Esophagitis Reflux V72.2 Examination Dental V72.0 Examination Eyes & Vision 268.9 Vitamin D Deficiency Unspec V62.3 Educational Circumstances Problem 272.4 Hyperlipidemia Other Unspec 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 277.9 Metabolic Disorder Unspec 278.00 Obesity Unspec GENERAL General Office Visit 11/29/2009 3:15p Main Office Daniele Oakes MD V72.2 Examination Dental V72.0 Examination Eyes & Vision 733.00 Osteoporosis Unspec 530.11 Esophagitis Reflux V04.81 Need For Prophylactic Vaccination & Inoculation/Influenza V70.0 Examination General Medical Routine [facility] 272.4 Hyperlipidemia Other Unspec GENERAL General Office Visit 05/24/2009 3:00p Main Office Daniele Oakes MD 424.0 Mitral Valve Disorder 443.00 Raynaud's Syndrome 564.10 Irritable Bowel Syndrome V72.2 Examination Dental V72.0 Examination Eyes & Vision 433.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 402.10 Hypertensive Heart Disease Benign W/O Heart Failure 272.4 Hyperlipidemia Other Unspec 715.90 Degenerative Joint Disease Genlzd Or Localzd Site Unspec 733.90 Osteopenia Unspec GENERAL General Office Visit 12/25/2008 2:30p Main Office Daniele Oakes 794.31 Electrocardiogram (ECG) (EKG) Abnormal GENERAL General Office Visit 11/28/2008 2:30p Main Office Daniele Oakes, 794.31 Electrocardiogram (ECG) (EKG) Abnormal 424.0 Mitral Valve Disorder 443.00 Raynaud's Syndrome 564.10 Irritable Bowel Syndrome V72.2 Examination Dental 530.81 Esophageal Reflux V70.0 Examination General Medical Routine AT [facility] V18.51 Colonic Polyps, Family History GENERAL General Office Visit 05/15/2008 3:15p Main Office Daniele Oakes MD 402.10 Hypertensive Heart Disease Benign W/O Heart Failure 443.00 Raynaud's Syndrome 272.4 Hyperlipidemia Other Unspec 564.10 Irritable Bowel Syndrome 733.00 Osteoporosis Unspec GENERAL General Office Visit 11/24/2007 3:00p Main Office Daniele Oakes MD 402.10 Hypertensive Heart Disease Benign W/O Heart Failure 443.00 Raynaud's Syndrome 564.10 Irritable Bowel Syndrome 272.4 Hyperlipidemia Other Unspec GENERAL General Office Visit 09/01/2007 12:45p Main Office Daniele Oakes MD 443.00 Raynaud's Syndrome 564.10 Irritable Bowel Syndrome 272.4 Hyperlipidemia Other Unspec GENERAL General Office Visit 07/21/2007 3:15p Main Office Daniele Oakes MD GENERAL General Office Visit 06/22/2007 3:30p Main Office Daniele Oakes MD 564.10 Irritable Bowel Syndrome 272.4 Hyperlipidemia Other Unspec 272.40 Hyperlipidemia 715.90 Degenerative Joint Disease Genlzd Or Localzd Site Unspec 733.00 Osteoporosis Unspec 530.81 Esophageal Reflux V72.2 Examination Dental 459.9 Circulatory System Disorder Unspec GENERAL General Office Visit 02/10/2007 3:00p Main Office Daniele Oakes MD 564.10 Irritable Bowel Syndrome 272.40 Hyperlipidemia 715.90 Degenerative Joint Disease Genlzd Or Localzd Site Unspec 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 530.81 Esophageal Reflux V72.2 Examination Dental GENERAL General Office Visit 08/26/2005 1:15p Main Office Daniele Oakes MD 692.89 Dermatitis Due To Spec Agents Other Office Visit 02/13/2005 12:00p Main Office Daniele Oakes MD 746.60 Mitral Regurgitation Office Visit 02/05/2005 10:45a Main Office Daniele Oakes MD 530.81 Esophageal Reflux 783.10 Weight Gain 564.10 Irritable Bowel Syndrome 401.10 Hypertension-Benign 785.90 Carotid Artery Bruit 746.60 Mitral Regurgitation GENERAL General Office Visit 09/20/2003 3:00p Main Office Daniele Oakes MD 386.00 Menieres Disease Unspec Plan of Treatment Future Appointment(s):12/27/2018 2:00 pm - Ultrasound at Main [id number]/11/2019 9:00 am - Nurse at Main [id number]/12/2019 8:00 am - Nurse at Main [id number] 9:00 am - Daniele Oakes MD at Main Office
--- OUTSIDE RECORDS SUMMARY | 2018-07-21 15:49 | XMS REPORT | Continuity of Care Document ---
:1950 External Reference #:[id number] Author Name Daniele Oakes MD Address [address] [place] [address] Care Team Providers Name Role Daniele Damon MD Primary Care Physician Unavailable Payers Date Identification Numbers Payment Provider Subscriber Expires: 2018 Policy Number: [id number] Johnnyus Haynes Loulou PayID: [id number] [address] [place] [address] Policy Number: [id number] Medicare Hemalathadanika Azevedo Loulou PayID: [id number] [address] [place] [address] Policy Number: [id number] Tarah Garveycarolynn Group Name: Matt [address] [address] PayID: [id number] [place] [address] Problems Active Problems Provider Date Mitral valve [...] Medications SIG Qnty Indications Ordering Date Provider Avtar 1 dose intramuscular 2doses Daniele Oakes MD 06/09/2017 50mcg then repeat in 4 Suspension Rec month Losartan 1 by mouth every day 90jalil Oakes MD 05/29/2016 Potassium/Hydrochlo rothiazide 100-25mg Tablets Polyethylene Glycol 17 gm every day as 90unmecca Oakes MD 06/16/2014 3350 needed Powder Amitiza 1pobid 180caps Daniele Oakes MD 09/10/2010 8mcg Capsules History Medications [...] injection as 1unmecca Oakes MD 05/29/2015 - 81673Szj/0.65ML ordered 07/02/2015 Solution Rec Belviq tab 1 by mouth 30taalexandra Oakes MD 01/12/2014 - 10mg Tablets every day 07/12/2015 Toprol XL 1 po hs 90taalexandra Oakes MD 03/21/2013 - 25mg Tablets ER 12/28/2013 24HR Folgard 1 po qd 90taalexandra Oakes MD 03/14/2013 - Tablets 05/29/2015 Polyethylene Glycol 17 gm every day 90unmecca Oakes MD 03/14/2013 - 3350 and needed [...] - 325mg 05/29/2015 Nexium 1 po qd 30nichole Oakes MD 11/29/2009 - 40mg Capsules 12/14/2012 [...] 4 weeks after Procardia 1 q day 90nichole Oakes MD 09/01/2007 - 10mg Capsules 11/28/2008 Medrol Dose Alex use as directed Daniele Oakes MD 08/26/2005 - 4mg 02/10/2007 Tablets Augmentin 1 po bid with food 20tabs Daniele Oakes MD 08/26/2005 - 875mg Tablets 02/10/2007 Folgard OS 1 po qd 90taalexandra Oakes MD 08/26/2005 - 1.5mg;500 mg 03/09/2013 Tablets Glycolax 1 capful in 8 527Gram Daniele Oakes MD 08/26/2005 - Powder Tablets ounces of water 12/14/2012 every 2-3 days for bowel movement Meridia 1 po qd 30capjohanny Oakes MD 01/23/2005 - 10mg Capsules 11/28/2010 Zithromax Z-Alex 1 po qd 1Pak Daniele Oakes MD 01/23/2005 - 250mg 02/13/2005 Tablets Protonix 1 po qd 90caps Daniele Oakes MD 01/21/2005 - 40mg Capsules 02/05/2005 [...] Influenza Virus (Afluria) Split Virus 3 Years [id number] Of Age And Older Q2035 Given 02/18/2017 Influenza Virus (Afluria) Split Virus 3 Years [id number] Of Age And Older Q2035 Given 11/11/2016 Influenza Virus (Afluria) Split Virus 3 Years Of Age And Older Q2037 Given 12/04/2015 Influenza Vaccine (Fluvirin) 1 Years Of Age Or [id number] Older 077[address] Given 05/29/2015 Zostavax 40733 Given 02/14/2015 Pneumococcal Conjugate Vaccine 13 Valent For [id number] Intramuscular Use Q2038 Given 12/28/2013 Influenza Vaccine (Fluzone) Administered Age 3 [id number] And Older Q2036 Given 12/28/2013 Flulaval 95026 Given 12/28/2013 Pneumovax Polyvalent Inj Im Q2037 Given 12/14/2012 Influenza Vaccine (Fluvirin) 3 Years Of Age Or Older Q2037 Given 2011 Influenza Vaccine (Fluvirin) 1 Years Of Age Or [id number] Older 00120 Given 06/02/2011 Tetanus,Diphtheria,Adut/Adol Pertussis [id number] Q2036 Given 11/28/2010 Flulaval [id number] 34034 Given 11/29/2009 Influenza Vaccine [id number] 45007 Given 06/12/2009 Hepatitis B Vaccine [id number] 21073 Given 03/15/2009 Hepatitis B Vaccine 31728 Given 03/15/2009 Hepatitis B Vaccine [id number] 08446 Given 03/15/2009 Typhoid Inj- Capsular Polysaccharide Intramuscular Use 11686 Given 03/15/2009 Typhoid Inj- Capsular Polysaccharide [id number] Intramuscular Use 36938 Given 02/12/2009 Hepatitis B Vaccine [id number] 40545 Given 02/12/2009 Tetanus Shot [id number] 50561 Given 02/12/2009 Hepatitis A Vaccine [id number] Vital Signs Date Vital Result Comment 07/20/2018 [...] [facility] BMI (Body Mass Index) 24.5 kg/m2 03/24/2014 [...] Sodium 140 mmol/L 135-[address] [place] [address] [phone] Potassium 4.0 mmol/L 3.5-5.3 Chloride 102 mmol/L 98-110 Carbon Dioxide 28 mmol/L 20-32 2 Calcium 9.4 mg/dL 8.6-10.4 Glucose 98 mg/dL 65-99 3 Urea Nitrogen (BUN) 14 mg/dL 7-25 Creatinine 0.83 mg/dL 0.50-0.99 4 BUN/Creatinine Ratio 16.9 6-22 Egfr Non-Afr. [place] 72 ML/MIN/1.73M2 > Or=60 Egfr 83 ML/MIN/1.73M2 > Or=60 General Health 01/06/2018 [facility] Thyroid Stim 2.38 uIU/mL N 0.30-4.20 5 Panel [facility] [address] Hormone [place], [place] [id number] [phone] Free T4 0.88 ng/dL N 0.76-1.46 .CBC W/Auto 01/06/2018 [facility] White Blood 7.5 K/ uL N 3.1-10.[address] [place] [address] [phone] Red Blood Count 3.94 M/uL N 3.90-5.40 [...] 40.4-72.8 Lymph % 18.0 % Low 20.0-42.0 [place] % 7.2 % N 4.3-13.2 Eo% 0.5 % N 0.0-6.6 Bas% 0.3 % N 0.0-1.1 Neut# 5.57 K/uL N 1.8-7.0 Lymph # 1.35 K/uL N 1.0-4.0 [place] # 0.54 K/uL N 0.3-0.9 Eos # 0.04 K/uL N 0.0-0.5 Baso # 0.02 K/uL N 0.0-0.1 .Lipid Panel 01/06/2018 [facility] Cholesterol 233 mg /dL High <[address] [place], [place] [id number] [phone] Triglycerides 87 mg/dL <150 7 HDL Cholesterol 78 mg/dL >40 8 LDL-Cholesterol 138 mg/dL < 100 9 Comprehensive 01/06/2018 [facility] Glucose 115 mg/ dL High 74-106 Metabolic Panel [address] [place], [place] [id number] [phone] BUN 14 mg/dL N 7-18 Creatinine 1.0 [...] Lab Sodium 139 mmol/L 135-[address] [place] [address] [phone] Potassium 3.9 mmol/L 3.5-5.3 Chloride 100 mmol/L [...] 1.9-3.7 A/G Ratio 1.7 1.0-2.5 Egfr Non-Afr. [place] 59 ML/MIN/1.73M2 Low > Or=60 Egfr 68 ML/MIN/1.73M2 > Or=60 CBC W/ Diff & PLT 10/24/2016 [facility] WBC 4.6 thous/L 3.8-10.8 [address] [facility] [place] [address] [phone] RBC 3.85 mill/L 3.80-5.10 Hemoglobin 13.5 g/dL 11.7-15.5 Hematocrit 39.4 % 35.0-45.0 MCV 102.3 FL High 80.0-100.0 MCH 35.1 pg High 27.0-33.0 MCHC 34.3 g/dL 32.0-36.0 RDW 13.2 % 11.0-15.0 Platelet Count 290 thous/L 140-400 Platelet Sufficiency PENDING MPV 9.1 FL 7.5-12.5 Neutrophils,Absolute 2500 cells/L [phone] Bands,Absolute PENDING Metamyelocytes,Absolute PENDING Myelocytes,Absolute PENDING Promyelocytes,Absolute [...] Phosphatase 54 U/L 33- 130 Panel [address] [place] [address] [phone] Ast 20 U/L 10-35 Alt 16 U/L 6-29 Bilirubin,Total 0.6 mg/dL 0.2-1.2 Bilirubin,Direct 0.1 mg/dL < Or=0.2 Protein,Total 6.9 g/dL 6.1-8.1 Albumin 4.3 g/dL 3.6-5.1 Globulin,Calculated 2.6 g/dL 1.9-3.7 A/G Ratio 1.6 1.0-2.5 Basic Metabolic Panel 10/24/2016 [facility] Sodium 139 mmol/L 135-[address] [place] [address] [phone] Potassium 4.1 mmol/L 3.5-5.3 Chloride 102 mmol/L 98-110 Carbon Dioxide 27 mmol/L 20-31 Calcium 9.5 mg/dL 8.6-10.4 Glucose 95 mg/dL 65-99 15 Urea Nitrogen 14 mg/dL 7-25 Creatinine 0.86 mg/dL 0.50-0.99 16 BUN/Creatinine Ratio 16.0 6-22 Egfr Non-Afr. [place] 69 ML/MIN/1.73M2 > Or=60 Egfr 80 ML/MIN/1.73M2 > Or=60 Basic Metabolic Panel 09/18/2016 [facility] Sodium 139 mmol/L 135-[address] [place] [address] [phone] Potassium 3.9 mmol/L 3.5-5.3 Chloride 103 mmol/L 98-110 Carbon Dioxide 26 mmol/L 20-31 Calcium 9.9 mg/dL 8.6-10.4 Glucose 103 mg/dL High 65-99 17 Urea Nitrogen 16 mg/dL 7-25 Creatinine 0.80 mg/dL 0.50-0.99 18 BUN/Creatinine Ratio 20.5 6-22 Egfr Non-Afr. [place] 76 ML/MIN/1.73M2 > Or=60 Egfr 88 ML/MIN/1.73M2 > Or=60 General Health Panel 05/22/2016 [facility] TSH 2.42 mIU/L 0.40-4.[address] [place] [address] [phone] T4,Free 1.0 ng/dL 0.8-1.8 CBC W/ Diff & PLT 05/22/2016 [facility] WBC 4.1 thous/L 3.8-10.[address] [place] [address] [phone] RBC 3.86 mill/L 3.80-5.10 Hemoglobin 13.2 g/dL 11.7-15.5 Hematocrit 39.7 % 35.0-45.0 MCV 102.8 FL High 80.0-100.0 MCH 34.1 pg High 27.0-33.0 MCHC 33.2 g/dL 32.0-36.0 RDW 13.8 % 11.0-15.0 Platelet Count 265 thous/L 140-400 Platelet Sufficiency PENDING MPV 9.3 FL 7.5-12.5 Neutrophils,Absolute 2100 cells/L [phone] Bands,Absolute PENDING Metamyelocytes,Absolute PENDING Myelocytes,Absolute PENDING Promyelocytes,Absolute [...] [facility] Cholesterol 200 mg/dL 125-[address] [place] [address] [phone] HDL Cholesterol 67 mg/dL > Or=46 Cholesterol/HDL Ratio 3.0 < Or=5.0 LDL Chol,Calculated 118 mg/dL <130 21 Triglycerides 76 mg/dL <150 Non-HDL Cholesterol 134 mg/dL 22 Hepatic Function 05/22/2016 [facility] Alkaline Phosphatase 54 U/L 33- [address] [place] [address] [phone] Ast 20 U/L 10-35 Alt 17 U/L 6-29 Bilirubin,Total 0.5 mg/dL 0.2-1.2 Bilirubin,Direct 0.1 mg/dL < Or=0.2 Protein,Total 6.7 g/dL 6.1-8.1 Albumin 4.2 g/dL 3.6-5.1 Globulin,Calculated 2.5 g/dL 1.9-3.7 A/G Ratio 1.7 1.0-2.5 23 Laboratory test 05/22/2016 [facility] Vitamin A 56 g/dL 38-[address] (Retinol) [place] [address] [phone] Comp Metabolic 05/22/2016 [facility] Sodium 140 mmol/L 135-[address] [place] [address] [phone] Potassium 4.2 mmol/L 3.5-5.3 Chloride 105 mmol/L [...] A/G Ratio 1.7 1.0-2.5 27 Egfr Non-Afr. [place] 82 ML/MIN/1.73M2 > Or=60 Egfr 96 ML/MIN/1.73M2 > Or=60 Basic Metabolic Panel 03/13/2016 [facility] Sodium 138 mmol/L 135-[address] [place] [address] [phone] Potassium 4.4 mmol/L 3.5-5.3 Chloride 103 mmol/L 98-110 Carbon Dioxide 26 mmol/L 20-31 Calcium 9.9 mg/dL 8.6-10.4 Glucose 82 mg/dL 65-99 28 Urea Nitrogen 12 mg/dL 7-25 Creatinine 0.74 mg/dL 0.50-0.99 29 BUN/Creatinine Ratio 16.8 6-22 Egfr Non-Afr. [place] 84 ML/MIN/1.73M2 > Or=60 Egfr 97 ML/MIN/1.73M2 > Or=60 General Health Panel 05/16/2015 [facility] TSH 2.01 mIU/L 0.40-4.[address] [place] [address] [phone] T4,Free 1.0 ng/dL 0.8-1.8 CMP W/O Egfr 05/16/2015 [facility] Sodium 138 mmol/L 135-146 6 [address] [facility] [place] [address] [phone] Potassium 4.4 mmol/L 3.5-5.3 Chloride 103 mmol/L [...] [facility] WBC 5.7 thous/L 3.8-10.8 [address] [place] [address] [phone] RBC 4.14 mill/L 3.80-5.10 Hemoglobin 14.5 g/dL 11.7-15.5 Hematocrit 43.3 % 35.0-45.0 MCV 104.5 FL High 80.0-100.0 MCH 35.1 pg High 27.0-33.0 MCHC 33.6 g/dL 32.0-36.0 RDW 13.6 % 11.0-15.0 Platelet Count 247 thous/L 140-400 Platelet Sufficiency PENDING MPV 9.3 FL 7.5-11.5 Neutrophils,Absolute 3640 cells/L [phone] Bands,Absolute PENDING Metamyelocytes,Absolute PENDING Myelocytes,Absolute PENDING Promyelocytes,Absolute [...] Lab Cholesterol 226 mg/dL High 125-[address] [place], [place] [address] [phone] HDL Cholesterol 72 mg/dL > Or=46 Cholesterol/HDL Ratio 3.1 < Or=5.0 LDL Chol,Calculated 142 mg/dL High <130 34 Triglycerides 60 mg/dL <150 Non-HDL Cholesterol 154 mg/dL 35 Hepatic Function 05/16/2015 [facility] Alkaline Phosphatase 69 U/L 33- [address] [place] [address] [phone] Ast 24 U/L 10-35 Alt 26 U/L 6-29 Bilirubin,Total 1.0 mg/dL 0.2-1.2 Bilirubin,Direct 0.2 mg/dL < Or=0.2 Protein,Total 7.1 g/dL 6.1-8.1 Albumin 4.3 g/dL 3.6-5.1 Globulin,Calculated 2.8 g/dL 1.9-3.7 A/G Ratio 1.6 1.0-2.5 Comprehensive 12/21/2013 [facility] Glucose 101 mg/ dL 74-106 Metabolic Panel [address] [place] [address] [phone] BUN 15 mg/dL 7-18 Creatinine 0.9 mg/dL [...] Phosphatase 67 U/L 45-117 Laboratory test 12/21/2013 [facility] Thyroid Stim 1.87 uIU/mL 0.36-3.[address] [place] [address] [phone] Free T4 0.92 ng/dL 0.76-1.46 Laboratory test 12/21/2013 [facility] Vitamin 44.5 30.0-100.0 [address] D,25-Hydroxy ng/mL [place], [place] [phone] CBS W/Automated 12/21/2013 [facility] White Blood 4.0 K/uL 3.1-10.[address] [place] [address] [phone] Red Blood Count 3.97 M/uL 3.90-5.40 Hemoglobin [...] % 40.4-72.8 Lymph % 25.9 % 17.0-46.1 [place] % 10.2 % 4.3-13.2 Eo% 1.5 % 0.0-6.6 Bas% 0.5 % 0.0-1.1 Neut# 2.49 K/uL 1.0-7.0 Lymph # 1.04 K/uL 0.8-3.4 [place] # 0.41 K/uL 0.3-0.9 Eos # 0.06 K/uL 0.0-0.5 Baso # 0.02 K/uL 0.0-0.1 Liver Function 12/21/2013 [facility] Total Protein 7.6 g/dL 6.4-8.[address] [place] [address] [phone] Albumin 4.1 g/dL 3.4-5.0 Globulin 3.5 g/dL 1.9-4.3 Alb/Glob 1.2 ratio Bilirubin,Total 0.7 mg/dL 0.2-1.0 Bilirubin,Direct 0.1 mg/dL 0.0-0.2 Bilirubin,Indirect 0.6 mg/dL 0.0-0.9 Sgot/Ast 21 U/L 15-37 SGPT/Alt 29 U/L 12-78 Alkaline Phosphatase 67 U/L 45-117 LDL Cholesterol 12/21/2013 [facility] Cholesterol 212 mg/dL < 200 [address] [place] [address] [phone] Triglycerides 72 mg/dL < 150 39 HDL Cholesterol 77 mg/dL > 40 40 LDL-Cholesterol 121 mg/dL < 100 41 Laboratory test 03/10/2013 [facility] Thyroid Stim 1.45 uIU/mL 0.49-4.[address] [place] [address] [phone] Renin Plasma 0.40 ng/mL/hr . 42 Aldosterone 6.7 ng/dL 0.0-30.0 43 Basic Metabolic Panel 11/29/2012 [facility] Glucose 89 mg/dL 76-[address] [place] [address] [phone] BUN 17 mg/dL 5-23 Creatinine 0.8 mg/dL 0.5-1.4 Glom Filtration Rate, Estimate >60 mL/min >60 If >60 mL/min >60 44 BUN/Creat 21.2 ratio Sodium 139 mmol/L 136-145 Potassium 4.0 mmol/L 3.5-5.1 Chloride 107 mmol/L 98-107 Carbon Dioxide 25 mEq/L 18-29 Anion Gap 11 mEq/L 8-16 Calcium 8.7 mg/dL 8.5-10.1 CBS W/Automated 11/29/2012 [facility] White Blood 4.5 K/uL 3.1-10.[address] [place] [address] [phone] Red Blood Count 3.92 M/uL 3.90-5.40 Hemoglobin [...] % 40.4-72.8 Lymph % 30.8 % 17.0-46.1 [place] % 8.3 % 4.3-13.2 Eo% 1.8 % 0.0-6.6 Bas% 0.4 % 0.0-1.1 Neut# 2.61 K/uL 1.0-7.0 Lymph # 1.37 K/uL 0.8-3.4 [place] # 0.37 K/uL 0.3-0.9 Eos # 0.08 K/uL 0.0-0.5 Baso # 0.02 K/uL 0.0-0.1 Laboratory test 06/09/2012 [facility] Hemoglobin A1c 5.1 % 0.0-5.6 [address] [place] [address] [phone] Comprehensive 11/25/2011 [facility] Glucose 96 mg/dL 76-115 Metabolic Panel [address] [place] [address] [phone] BUN 14 mg/dL 5-23 Creatinine 0.9 mg/dL [...] Phosphatase 64 U/L 50-136 LDL Cholesterol 11/25/2011 [facility] Cholesterol 198 mg/dL 120-[address] [place] [address] [phone] Triglycerides 52 mg/dL 16-231 HDL Cholesterol 68 mg/dL 29-83 LDL-Cholesterol 120 mg/dL 62-185 Liver Function 11/25/2011 [facility] Total Protein 7.5 g/dL 6.3-8.[address] [place] [address] [phone] Albumin 4.1 g/dL 3.5-5.0 Globulin 3.4 g/dL 1.9-4.3 Alb/Glob 1.2 ratio Bilirubin,Total 0.6 mg/dL 0.2-1.2 Bilirubin,Direct 0.2 mg/dL 0.1-0.4 Bilirubin,Indirect 0.4 mg/dL 0.0-0.9 Sgot/Ast 30 U/L 16-40 SGPT/Alt 39 U/L 30-65 Alkaline Phosphatase 64 U/L 50-136 Laboratory test 11/25/2011 [facility] Thyroid Stim 2.13 uIU/mL 0.49-4.[address] [place] [address] [phone] Free T4 0.84 ng/dL 0.71-1.85 CBS W/Automated 11/25/2011 [facility] White Blood 3.9 K/uL 3.1-10.[address] [place] [address] [phone] Red Blood Count 3.98 M/uL 3.90-5.40 Hemoglobin [...] % 40.4-72.8 Lymph % 33.3 % 17.0-46.1 [place] % 8.9 % 4.3-13.2 Eo% 1.3 % 0.0-6.6 Bas% 1.0 % 0.0-1.1 Neut# 2.18 K/uL 1.0-7.0 Lymph # 1.31 K/uL 0.8-3.4 [place] # 0.35 K/uL 0.3-0.9 Eos # 0.05 K/uL 0.0-0.5 Baso # 0.04 K/uL 0.0-0.1 Basic Metabolic Panel 09/17/2011 [facility] Glucose 87 mg/dL 76-[address] [place] [address] [phone] BUN 12 mg/dL 5-23 Creatinine 0.7 mg/dL 0.5-1.4 Glom Filtration Rate, Estimate >60 mL/min >60 If >60 mL/min >60 47 BUN/Creat 17.1 ratio Sodium 141 mmol/L 136-145 Potassium 4.2 mmol/L 3.5-5.1 Chloride 108 mmol/L High 98-107 Carbon Dioxide 24 mEq/L 18-29 Anion Gap 13 mEq/L 8-16 Calcium 9.1 mg/dL 8.5-10.1 Laboratory test 09/17/2011 [facility] Uric Acid 4.4 mg/dL 2.1-7.[address] [place] [address] [phone] C-Reactive Protein,Quant < 2.9 mg/L 0.0-4.9 CBC 09/17/2011 [facility] White Blood Count 3.2 K/uL 3.1-10.[address] [place] [address] [phone] Red Blood Count 3.94 M/uL 3.90-5.40 Hemoglobin 13.4 gm/dL 11.6-15.8 Hematocrit 39.3 % 36.0-46.1 Mean Cell Volume 99.7 fl High 80.9-99.0 Mean Corpuscular HGB 34.0 pg High 25.9-32.7 Mean Corpuscular HGB Conc 34.1 g/dL 30.8-34.3 Platelet Count 212 K/uL 155-360 Red Cell Distri Width %CV 12.4 % 11.7-14.4 Mean Platelet Volume 11.8 fL 8.9-12.4 Laboratory test 09/17/2011 [facility] Sedimentation 8 mm/hr 0-[address] [place] [address] [phone] Laboratory test 05/26/2011 [facility] Vitamin 48.3 30.0-100 [address] D,25-Hydroxy ng/mL .0 [place] [address] [phone] Comprehensive 11/14/2010 [facility] Glucose 95 mg/dL 76-115 Metabolic Panel [address] [place] [address] [phone] BUN 17 mg/dL 5-23 Creatinine 1.0 mg/dL [...] Phosphatase 57 U/L 50-136 Liver Function 11/14/2010 [facility] Total Protein 7.3 g/dL 6.3-8.[address] [place] [address] [phone] Albumin 4.0 g/dL 3.5-5.0 Bilirubin,Total 0.9 mg/dL 0.2-1.2 Bilirubin,Direct 0.2 mg/dL 0.1-0.4 Bilirubin,Indirect 0.7 mg/dL 0.0-0.9 Sgot/Ast 30 U/L 16-40 SGPT/Alt 37 U/L 30-65 Alkaline Phosphatase 57 U/L 50-136 Globulin 3.3 g/dL 1.9-4.3 Alb/Glob 1.2 ratio Laboratory test 11/14/2010 [facility] Thyroid Stim 1.59 uIU/mL 0.49-4.[address] [place] [address] [phone] Free T4 0.81 ng/dL 0.71-1.85 Direct LDL Cholesterol 118 mg/dL High 0-99 50 CBC W/Automated 11/14/2010 [facility] White Blood 3.9 K/uL 3.1-10.[address] [place] [address] [phone] Red Blood Count 4.03 M/uL 3.90-5.40 Hemoglobin 13.6 gm/dL 11.6-15.8 Hematocrit 40.1 % 36.0-46.1 Mean Cell Volume 99.5 fl High 80.9-99.0 Mean Corpuscular HGB 33.7 pg High 25.9-32.7 Mean Corpuscular HGB Conc 33.9 g/dL 30.8-34.3 Platelet Count 212 K/uL 155-360 Red Cell Distri Width %CV 11.8 % 11.7-14.4 Mean Platelet Volume 12.1 fL 8.9-12.4 Neut% 50.3 % 40.4-72.8 Lymph % 36.1 % 17.0-46.1 [place] % 10.5 % 4.3-13.2 Eo% 2.3 % 0.0-6.6 Bas% 0.8 % 0.0-1.1 Neut# 1.97 K/uL 1.0-7.0 Lymph # 1.41 K/uL 0.8-3.4 [place] # 0.41 K/uL 0.3-0.9 Eos # 0.09 K/uL 0.0-0.5 Baso # 0.03 K/uL 0.0-0.1 Red Cell Distri Width SD 42.5 fl 3-47 Basic Metabolic Panel 05/23/2010 [facility] Glucose 92 mg/dL 76-[address] [place], [place] [address] [phone] BUN 14 mg/dL 5-23 Creatinine 0.8 mg/dL 0.5-1.4 Glom Filtration Rate, Estimate >60 mL/min >60 If >60 mL/min >60 51 BUN/Creat 17.5 Sodium 141 mEq/L 136-145 Potassium 5.0 mEq/L 3.5-5.1 Chloride 103 mEq/L 98-107 Carbon Dioxide 30 mEq/L 21-32 Anion Gap 13 mEq/L 8-16 Calcium 9.1 mg/dL 8.5-10.1 LDL Cholesterol 05/23/2010 [facility] Cholesterol 218 mg/dL High 120-[address] [place], [place] [id number] [phone] Triglycerides 54 mg/dL 0-210 HDL Cholesterol 63 mg/dL 32-96 LDL-Cholesterol 144 mg/dL 62-185 CBS W/Automated 05/23/2010 [facility] White Blood 4.0 K/uL 3.1-10.[address] [place] [address] [phone] Red Blood Count 4.30 M/uL 3.90-5.40 Hemoglobin 14.3 gm/dL 11.6-15.8 Hematocrit 42.1 % 36.0-46.1 Mean Cell Volume 97.9 fl 80.9-99.0 Mean Corpuscular HGB 33.3 pg High 25.9-32.7 Mean Corpuscular HGB Conc 34.0 g/dL 30.8-34.3 Platelet Count 247 K/uL 155-360 Red Cell Distri Width %CV 11.8 % 11.7-14.4 Mean Platelet Volume 11.4 fL 8.9-12.4 Neut% 48.7 % 40.4-72.8 Lymph % 37.2 % 17.0-46.1 [place] % 10.6 % 4.3-13.2 Eo% 3.0 % 0.0-6.6 Bas% 0.5 % 0.0-1.1 Neut# 1.92 K/uL 1.0-7.0 Lymph # 1.47 K/uL 0.8-3.4 [place] # 0.42 K/uL 0.3-0.9 Eos # 0.12 K/uL 0.0-0.5 Baso # 0.02 K/uL 0.0-0.1 Red Cell Distri Width SD 41.6 fl 3-47 Liver Function 11/19/2009 [facility] Total Protein 7.4 g/dL 6.3-8.[address] [place], [place] [id number] [phone] Albumin 4.2 g/dL 3.5-5.0 Bilirubin,Total 0.7 mg/dL 0.2-1.2 Bilirubin,Direct 0.2 mg/dL 0.1-0.4 Bilirubin,Indirect 0.5 mg/dL 0.0-0.9 Sgot/Ast 31 U/L 16-40 SGPT/Alt 43 U/L 30-65 Alkaline Phosphatase 72 U/L 50-136 Globulin 3.2 gm/dL 1.9-4.3 Alb/Glob 1.3 Comprehensive 11/19/2009 [facility] Glucose 75 mg/dL Low 76-115 Metabolic Panel [address] [place] [address] [phone] BUN 16 mg/dL 5-23 Creatinine 0.8 mg/dL [...] Phosphatase 72 U/L 50-136 LDL Cholesterol 11/19/2009 [facility] Cholesterol 225 mg/dL High 120-[address] [place] [address] [phone] Triglycerides 37 mg/dL 0-210 HDL Cholesterol 84 mg/dL 32-96 LDL-Cholesterol 134 mg/dL 62-185 Laboratory test 11/19/2009 [facility] Glycohemoglobin A1c 5.0 % 4.8-6.0 [address] [place] [address] [phone] Vitamin D,25-Hydroxy 60.4 ng/mL 32.0-100.0 54 CBS W/Automated 11/19/2009 [facility] White Blood 6.4 K/uL 3.1-10.[address] [place] [address] [phone] Red Blood Count 4.10 M/uL 3.90-5.40 Hemoglobin 13.8 gm/dL 11.6-15.8 Hematocrit 41.0 % 36.0-46.1 Mean Cell Volume 100.0 fl High 80.9-99.0 Mean Corpuscular HGB 33.7 pg High 25.9-32.7 Mean Corpuscular HGB Conc 33.7 g/dL 30.8-34.3 Platelet Count 233 K/uL 155-360 Red Cell Distri Width %CV 12.8 % 11.7-14.4 Mean Platelet Volume 11.2 fL 8.9-12.4 Neut% 67.5 % 40.4-72.8 Lymph % 22.5 % 17.0-46.1 [place] % 8.6 % 4.3-13.2 Eo% 0.8 % 0.0-6.6 Bas% 0.6 % 0.0-1.1 Neut# 4.3 K/uL 1.0-7.0 Lymph # 1.4 K/uL 0.8-3.4 [place] # 0.6 K/uL 0.3-0.9 Eos # 0.1 K/uL 0.0-0.5 Baso # 0.0 K/uL 0.0-0.1 Red Cell Distri Width SD 45.9 fl 3-47 Laboratory test 11/19/2009 [facility] Thyroid Stim 1.62 uIU/mL 0.49-4.67 [address] Hormone [place], [place] [id number] [phone] Free T4 0.81 ng/dL 0.71-1.85 56 LDL Cholesterol 05/17/2009 [facility] Cholesterol 210 mg/dL High 120-[address] [place], [place] [id number] [phone] Triglycerides 36 mg/dL 0-210 HDL Cholesterol 78 mg/dL 32-96 LDL-Cholesterol 125 mg/dL 62-185 Liver Function 05/17/2009 [facility] Total Protein 7.7 g/dL 6.3-8.[address] [place], [place] [id number] [phone] Albumin 4.4 g/dL 3.5-5.0 Bilirubin,Total 0.4 mg/dL 0.2-1.2 Bilirubin,Direct 0.1 mg/dL 0.1-0.4 Bilirubin,Indirect 0.3 mg/dL 0.0-0.9 Sgot/Ast 39 U/L 16-40 SGPT/Alt 73 U/L High 30-65 Alkaline Phosphatase 139 U/L High 50-136 Globulin 3.3 gm/dL 1.9-4.3 Alb/Glob 1.3 Comprehensive 05/17/2009 [facility] Glucose 100 mg/ dL 76-115 Metabolic Panel [address] [place] [address] [phone] BUN 15 mg/dL 5-23 Creatinine 0.8 mg/dL [...] 139 U/L High 50-136 TSH+Free T4 05/17/2009 [facility] Thyroid Stim 1.18 uIU/mL 0.49-4.67 ([facility] & [address] Hormone [facility]) [place] [address] [phone] Free T4 0.87 ng/dL 0.71-1.85 CBS W/Automated 05/17/2009 [facility] White Blood 4.8 K/uL 3.1-10.[address] [place] [address] [phone] Red Blood Count 3.95 M/uL 3.90-5.40 Hemoglobin [...] % 40.4-72.8 Lymph % 27.4 % 17.0-46.1 [place] % 11.7 % 4.3-13.2 Eo% 1.3 % 0.0-6.6 Bas% 0.6 % 0.0-1.1 Neut# 2.8 K/uL 1.0-7.0 Lymph # 1.3 K/uL 0.8-3.4 [place] # 0.6 K/uL 0.3-0.9 Eos # 0.1 K/uL 0.0-0.5 Baso # 0.0 K/uL 0.0-0.1 Red Cell Distri Width SD 49 fl High 3-47 Basic Metabolic Panel 11/23/2007 [facility] Sodium 140 mmol/L 135-[address] [place] [address] [phone] Potassium 4.1 mmol/L 3.5-5.3 Chloride 106 mmol/L 98-110 Carbon Dioxide 24 mmol/L 21-33 Calcium 9.3 mg/dL 8.6-10.2 Glucose 101 mg/dL High 65-99 58 Urea Nitrogen 14 mg/dL 7-25 Creatinine 0.78 mg/dL 0.50-1.20 BUN/Creatinine Ratio 17.7 6-22 Egfr Non-Afr. [place] >60 ML/MIN/1.73M2 > Or=60 Egfr >60 ML/MIN/1.73M2 > Or=60 Lipid Panel 11/23/2007 [facility] Cholesterol 199 mg/dL 125-[address] [place] [address] [phone] HDL Cholesterol 80 mg/dL > Or=46 Cholesterol/HDL Ratio 2.5 < Or=5.0 LDL Chol,Calculated 110 mg/dL <130 59 Triglycerides 47 mg/dL <150 Culture,Urine,Voided 06/22/2007 [facility] URINE-CLEAN CATC [address] <SEE NOTE> [place] [address] [phone] Preliminary Report DNR Interim Report DNR Final Report DNR Organism #2 DNR Organism #3 DNR Organism #4 DNR 4399 DNR Lipid Panel 06/09/2007 [facility] Cholesterol 216 mg/dL High 125-[address] [place] [address] [phone] HDL Cholesterol 76 mg/dL > Or=40 61 Triglycerides 50 mg/dL <150 Cholesterol/HDL Ratio 2.8 < Or=5.0 LDL Chol,Calculated 130 mg/dL High <130 62 Laboratory test 06/09/2007 [facility] Hemoglobin A1c 5.2 % <6.[address] [place] [address] [phone] Basic Metabolic 06/09/2007 [facility] Sodium 141 mmol/L 135-[address] [place] [address] [phone] Potassium 4.3 mmol/L 3.5-5.3 Chloride 105 mmol/L 98-110 Carbon Dioxide 27 mmol/L 21-33 Calcium 9.9 mg/dL 8.6-10.2 Glucose 102 mg/dL High 65-99 63 Urea Nitrogen 14 mg/dL 7-25 Creatinine 0.85 mg/dL 0.50-1.20 BUN/Creatinine Ratio 16.7 6-22 Egfr Non-Afr. [place] >60 ML/MIN/1.7 > Or=60 Egfr >60 ML/MIN/1.7 > Or=60 Culture,Urine,Voided 02/10/2007 [facility] Source URINE-URETHRA [address] [facility] [place] [address] [phone] Preliminary Report DNR Interim Report DNR Final Report DNR Organism #2 DNR Organism #3 DNR Organism #4 DNR 4399 DNR Laboratory test 02/04/2007 [facility] CK,Total 72 U/L < Ea=[address] [place] [address] [phone] Lipid Panel 02/04/2007 [facility] Cholesterol 229 mg/dL High 125-[address] [place] [address] [phone] HDL Cholesterol 83 mg/dL > Or=40 64 Triglycerides 47 mg/dL <150 Cholesterol/HDL Ratio 2.8 < Or=5.0 LDL Chol,Calculated 137 mg/dL High <130 65 Hepatic Function 02/04/2007 [facility] Alkaline Phosphatase 60 U/L 33- [address] [place] [address] [phone] Ast 28 U/L 10-35 Alt 34 U/L 6-40 Bilirubin,Total 0.8 mg/dL 0.2-1.2 Bilirubin,Direct 0.2 mg/dL < Or=0.2 Protein,Total 7.5 g/dL 6.2-8.3 Albumin 4.6 g/dL 3.6-5.1 TSH & T4,Free 02/04/2007 [facility] TSH,3RD 2.11 mU/L 0.40-4.[address] [place] [address] [phone] T4,Free 1.0 ng/dL 0.8-1.8 CBC W/ Diff & PLT 02/04/2007 [facility] WBC 4.9 thous/L 3.8-10.[address] [place] [id number] [phone] RBC 4.19 mill/L 3.80-5.10 Hemoglobin 14.5 g/dL 11.7-15.5 Hematocrit 41.8 % 35.0-45.0 MCV 99.8 FL 80.0-100.0 MCH 34.7 pg High 27.0-33.0 MCHC 34.8 g/dL 32.0-36.0 RDW 12.5 % 11.0-15.0 Platelet Count 241 thous/L 140-400 Platelet Sufficiency NORMAL Normal Neutrophils,Absolute 2490 cells/L 1339-1177 Bands,Absolute DNR cells/L 0-750 Metamyelocytes,Absolute DNR cells/L [...] [facility] Sodium 138 mmol/L 135-[address] [place] [address] [phone] Potassium 4.5 mmol/L 3.5-5.3 Chloride 104 mmol/L [...] 2.2-3.9 A/G Ratio 1.6 1.0-2.1 Egfr Non-Afr. [place] >60 ML/MIN/1.7 > Or=60 Egfr >60 ML/MIN/1.7 > Or=60 CBC W/ Diff & PLT 10/09/2004 [facility] WBC 5.9 thous/L 3.8-10.[address] [place] [address] [phone] RBC 4.39 mill/L 3.80-5.10 Hemoglobin 15.1 g/dL 11.7-15.5 Hematocrit 44.1 % 35.0-45.0 MCV 100.3 FL High 80.0-100.0 MCH 34.5 pg High 27.0-33.0 MCHC 34.3 g/dL 32.0-36.0 RDW 13.0 % 11.0-15.0 Platelet Count 270 thous/L 140-400 Platelet Sufficiency NORMAL Neutrophils,Absolute 3930 cells/L 6920-1220 Bands,Absolute DNR cells/L 0-750 Metamyelocytes,Absolute DNR cells/L [...] [facility] Sodium 142 mmol/L 135-146 [address] [place], [place] [id number] [phone] Potassium 3.8 mmol/L 3.5-5.3 Chloride 105 mmol/L [...] HDL Cholesterol 87 mg/dL >40 70 [address] [place] [address] [phone] Cholesterol 288 mg/dL High <200 Triglycerides 115 mg/dL <150 Cholesterol/HDL Ratio 3.3 <4.4 LDL Chol,Calculated 178 mg/dL High <130 71 Laboratory test finding 10/09/2004 [facility] TSH 1.43 mU/L 0.40-5.50 72 [address] [place] [address] [phone] 1 FASTING 2 Reference range for high altitude clients: 18-30 mmol/L 3 GLUCOSE REFERENCE RANGE BASED ON FASTING SPECIMEN. 4 The upper reference limit for Creatinine is approximately 13% higher for people identified as -[place]. 5 WAITING FOR ORDER 6 Reference Guidelines*: [...] approximately 13% higher for people identified as -[place]. 14 Relative blood cell counts (%) should [...] approximately 13% higher for people identified as -[place]. 17 GLUCOSE REFERENCE RANGE BASED ON FASTING SPECIMEN. 18 The upper reference limit for Creatinine is approximately 13% higher for people identified as -[place]. 19 REFERENCE RANGES BELOW ARE APPLICABLE TO [...] INTENDED TO ORDER, PLEASE CONTACT YOUR LOCAL STEAM CONDITIONER FILLING IMMEDIATELY AT SO THAT WE CAN ADJUST OUR BILLING APPROPRIATELY. YOU MAY ALSO INQUIRE ABOUT ALTERNATIVE OR ADDITIONAL TESTING. 24 Vitamin supplementation within 24 hours prior to blood draw may affect the accuracy of the results. This test was developed and its analytical performance characteristics have been determined by [facility] [place], [place]. It has not been cleared or approved by the U.S. Food and Drug Administration. This assay has been validated pursuant to the CLIA regulations and is used for clinical purposes. 25 GLUCOSE REFERENCE RANGE BASED ON FASTING SPECIMEN. 26 The upper reference limit for Creatinine is approximately 13% higher for people identified as -[place]. 27 WE RECEIVED YOUR HANDWRITTEN TEST ORDER FOR A CHEMISTRY PANEL CONTAINING 14 OR MORE ANALYTES. WE PERFORMED THE AMA DEFINED COMPREHENSIVE METABOLIC PANEL. IF THIS IS NOT WHAT YOU INTENDED TO ORDER, PLEASE CONTACT YOUR LOCAL STEAM CONDITIONER FILLING IMMEDIATELY AT SO THAT WE CAN ADJUST OUR BILLING APPROPRIATELY. YOU MAY ALSO INQUIRE ABOUT ALTERNATIVE OR ADDITIONAL TESTING. 28 GLUCOSE REFERENCE RANGE BASED ON FASTING SPECIMEN. 29 The upper reference limit for Creatinine is approximately 13% higher for people identified as -[place]. 30 REFERENCE RANGES BELOW ARE APPLICABLE TO FEMALES FIRST TRIMESTER - 0.26 - 2.66 mIU/L SECOND TRIMESTER - 0.55 - 2.73 mIU/L THIRD TRIMESTER - 0.43 - 2.91 mIU/L 31 GLUCOSE REFERENCE RANGE BASED ON FASTING SPECIMEN. 32 The upper reference limit for Creatinine is approximately 13% higher for people identified as -[place]. 33 Relative blood cell counts (%) should be compared with absolute cell counts (cells/mcL). Relative counts may not be clinically meaningful if the absolute count of one or more cell type is decreased. Reference ranges for relative cell counts derived from: A Manual of Laboratory and Diagnostics Tests, 9th Ed, [employer], 2015. Pediatric Reference Intervals, 7th Ed, [facility] [employer], 2011. 34 LDL-CHOLESTEROL RISK CATEGORY* GOAL [...] D deficiency has been defined by the [employer] of Medicine and an Endocrine Society practice guideline as a level of serum 25-OH vitamin D less than 20 ng/mL (1,2). The Endocrine Society went on to further define vitamin D insufficiency as a level between 21 and 29 ng/mL (2). 1. IOM ([employer] of [employer]). 2010. Dietary reference intakes for calcium and D. [place]: The National Academies Press. 2. Vance SOLOMON, Sherita RESTREPO, Jah LEWIS, et al. Evaluation, treatment, and prevention of vitamin D deficiency: an Endocrine Society clinical practice guideline. JCEM. 2010; 96(7):1911-30. Performed at: RN - [facility] [address] [id number] Dredge Runner: Aparna Mullen MD, Phone: [phone] Reference Guidelines*: Desirable: ........... < 200 [...] Na=>150 0.39 - 1.31 43 Performed at: - [facility] [address] [id number] Dredge Runner: Sudhir Koch MD, Phone: [phone] Note: Persistent reduction for 3 months [...] D deficiency has been defined by the [employer] of Medicine and an Endocrine Society practice guideline as a level of serum 25-OH vitamin D less than 20 ng/mL (1,2). The Endocrine Society went on to further define vitamin D insufficiency as a level between 21 and 29 ng/mL (2). 1. IOM ([employer] of Medicine). 2010. Dietary reference intakes for calcium and D. [place]: The National Academies Press. 2. Vance MF, Sherita [place], Jah LEWIS, et al. Evaluation, treatment, and prevention of vitamin D deficiency: an Endocrine Society clinical practice guideline. JCEM. 2010; 96(7):1911-30. Performed at: RN - [facility] [address] [id number] Dredge Runner: Erik Peter MD, Phone: [phone] Note: Persistent reduction for 3 months [...] found at www.kdoqi.org. 50 Performed at: - [facility] [id number] Dredge Runner: Erik Peter MD, Phone: [phone] Note: Persistent reduction for 3 months [...] RAMIREZ. J Nutr. 2004;135(2):317-22. Performed at: - [facility] [address] [id number] Dredge Runner: Erik Peter MD, Phone: [phone] QUERY: @EMR Pat ID: [id number] QUERY: @EMR Req #: [phone] [phone] QUERY: @EMR Pat ID: [id number] QUERY: @EMR Req #: [id number] Note: Persistent reduction for 3 months [...] FOR RACE, IF THE PATIENT'S RACE IS -BA[place]RAINI, THE GFR ESTIMATE MUST BE MULTIPLIED BY [...] mU/L Procedures Date Code Description Status 01/06/2018 62805 EKG-Tracing & Report Completed 12/22/2017 01776 Non-Invcorrotid/Comp /Bilat Study Completed 12/21/2017 83574 Echocardiography Completed 10/23/2016 13043 EKG-Tracing & Report Completed 05/22/2016 40804 EKG-Tracing & Report Completed 12/24/2015 60073252 Mammogram Completed 08/30/2014 70287 EKG-Tracing & Report Completed 03/23/2014 [id number] Colonoscopy Completed 12/26/2013 41299 EKG-Tracing & Report Completed 06/03/2012 [id number] Bone Mineral Density Test Completed 06/03/2012 81726 Bone Density Completed 11/26/2011 82248 EKG-Tracing & Report Completed 11/25/2011 51381 Spirometry Graphic Record/Max Voluntary Vent Completed 11/25/2011 66892 Holter Monitor Office Completed 11/24/2011 68745 Non-Invcorrotid/Comp /Bilat Study Completed 11/24/2011 41593 Echocardiography Completed 05/30/2010 40746 Bone Density Completed 11/19/2009 46665 EKG-Tracing & Report Completed 11/19/2009 12564 Echocardiography Completed 11/19/2009 96534 Non-Invcorrotid/Comp /Bilat Study Completed 11/14/2008 89491 Non-Invcorrotid/Comp /Bilat Study Completed 11/14/2008 32494 Echocardiography Completed 11/16/2007 48556 Non-Invcorrotid/Comp /Bilat Study Completed 11/16/2007 08746 Doppler Color Flow Velocity Completed 11/16/2007 21340 Doppler/ECHO Completed 11/16/2007 37889 ECHO-2D W/Wo M-Mode Completed 11/16/2007 37212 Bone Density Completed 02/07/2005 73969 Non-Invcorrotid/Comp /Bilat Study Completed 02/07/2005 51240 Doppler Color Flow Velocity Completed 02/07/2005 30823 Doppler/ECHO Completed 02/07/2005 34872 ECHO-2D W/Wo M-Mode Completed 07/26/2003 63926 EKG-Tracing & Report Completed Encounters Type Date Location Provider Dx Diagnosis Office Visit 01/19/2018 Main Office Daniele Oakes MD I11.9 Hypertensive heart 12:45p disease without heart failure E78.5 Hyperlipidemia, unspecified [...] immunization Office Visit 06/09/2017 8:45a Main Office Hesham Wilson.Hanna Good MD unspecified I11.9 Hypertensive heart disease without heart [...] Office Visit 05/29/2016 12:45p Main Office Daniele Oakes, K21.9 Gastro- esophageal reflux MD disease without [...] Oakes MD V58.32 Encounter For Removal Of Sutures/[facility] General Office Visit 11/28/2010 11:00a Main [...] Office Visit 11/28/2008 2:30p Main Office Daniele Oakes 794.31 Electrocardiogram (ECG) (EKG) Abnormal 424.0 Mitral [...] Appointment(s):12/27/2018 2:00 pm - Ultrasound at Main Imwevf4001/11/2019 9:00 am - Nurse at Main [id number]/12/2019 8:00 am - Nurse at Main [id number] 9:00 am - Daniele Oakes MD at Main Office
[2018-07-21 15:57] VITALS: BP 140/84
[2018-07-21] MEDS ORDERED: Ibuprofen TAB* 600 MG PO ONE (16:22)
[2018-07-21] MEDS ORDERED: Acetaminophen TAB* 325 MG PO ONE (16:22)
--- NOTE | 2018-07-21 16:24 | ED ---
Throat Pain/Nasal Congestion - HPI Summary HPI Summary: pt went hiking. she tripped on a tree root and landed on her chin. she complains of mild left chest wall pain. she states that she completed the rest of the hike for approx 1.5hrs. she states this happened approx 3 hours ago. she is not on any blood thinners. she further states that she has a small laceration to her lower lip. - History of Current Complaint Chief Complaint: UCGeneralIllness Hx Obtained From: Patient, Family/Catalyst Operator Onset/Duration: Sudden Onset Severity: Mild - Allergies/Home Medications Allergies/Adverse Reactions: Allergies Allergy/AdvReac Type Severity Reaction Status Date / Time No Known Allergies Allergy Verified 07/21/18 15:57 PMH/Surg Hx/FS Hx/Imm Hx Previously Healthy: Yes Cardiovascular History: Reports: Hx Hypertension, Other Cardiovascular Problems/ Disorders GI History: Reports: Other GI Disorders - SLOW BOWEL - ON MEDICATION Musculoskeletal History: Reports: Hx Arthritis - BILATERAL KNEES Sensory History: Reports: Hx Contacts or Glasses - GLASSES Denies: Hx Hearing Aid Opthamlomology History: Reports: Hx Contacts or Glasses - GLASSES - Surgical History Surgery Procedure, Year, and Place: 2011 ARTHROSCOPY LEFT KNEE, LYLE. R knee- 2013, bilat knee replacement. RIGHT THUMB I&D. TONSILLECTOMY Hx Anesthesia Reactions: No Infectious Disease History: No Infectious Disease History: Denies: Hx Clostridium Difficile, Hx Hepatitis, Hx Human Immunodeficiency Virus (HIV), Hx of Known/Suspected MRSA, Hx Shingles, Hx Tuberculosis, Hx Known/ Suspected VRE, Hx Known/Suspected VRSA, History Other Infectious Disease, Traveled Outside the [place] in Last 30 Days - Family History Known Family History: Positive: None, Cardiac Disease - Social History Alcohol Use: Daily Alcohol Amount: wine with supper Substance Use Type: Reports: None Smoking Status (MU): Never Smoked Tobacco Have You Smoked in the Last Year: No Review of Systems Constitutional: Negative Eyes: Negative ENT: Negative Cardiovascular: Negative Respiratory: Negative Gastrointestinal: Negative Genitourinary: Negative Positive: Other - chest wall pain Positive: Bruising - chin Neurological: Negative Psychological: Normal All Other Systems Reviewed And Are Negative: No Physical Exam Triage Information Reviewed: Yes Vital Signs On Initial Exam: Initial Vitals Temp Pulse Resp BP Pulse Ox 97.2 F 66 16 140/84 100 07/21/18 15:52 07/21/18 15:52 07/21/18 15:52 07/21/18 15:52 07/21/18 15:52 Vital Signs Reviewed: Yes Appearance: Positive: Well-Appearing, No Pain Distress, Well-Nourished Skin: Positive: Warm, Dry, Other - significant hematoma to chin, small laceration approx 2.0cm to lower lip in the shape of a y. Eyes: Positive: Normal, EOMI ENT: Positive: Hearing grossly normal, Pharynx normal Neck: Positive: Supple, Nontender Respiratory/Lung Sounds: Positive: Clear to Auscultation, Breath Sounds Present Cardiovascular: Positive: Normal, RRR Abdomen Description: Positive: Nontender, Soft Bowel Sounds: Positive: Present Musculoskeletal: Positive: Normal, Strength/ROM Intact Neurological: Positive: Normal, Sensory/Motor Intact, Alert, Oriented to Person Place, Time, CN Intact II-III Psychiatric: Positive: Normal AVPU Assessment: Alert Procedures - Laceration/Wound Repair 1 Location: Other - lower lip Description: Irregular - y shaped Length, Depth and Shape: 2cm Betadine Prep?: No Laceration/Wound Explored: clean Closure: Single Layer Suture Type: Vicryl Number of Sutures: 6 Layer Closure?: No Sterile Dressing Applied?: No Diagnostics - Vital Signs Vital Signs Temp Pulse Resp BP Pulse Ox 07/21/18 15:52 97.2 F 66 16 140/84 100 - Laboratory Lab Statement: Any lab studies that have been ordered have been reviewed, and results considered in the medical decision making process. EENT Course/Dx - Course Course Of Treatment: pt had a mechanical fall. ct face shows no acute fractures. cxr shows no acute frx. pt did complain of mild right chest wall discomfort. i repaired her laceration without difficulty. pt discharged and encouraged to f/u with pcp. - Diagnoses Provider Diagnoses: Contusion, Laceration Discharge - Sign-Out/Discharge Documenting (check all that apply): Patient Departure All imaging exams completed and their final reports reviewed: Yes - Discharge Plan Condition: Stable Disposition: HOME Patient Education Materials: Laceration (ED), Hematoma (ED) Referrals: Daniele Oakes MD [Primary Care Provider] - Additional Instructions: the sutures will dissolve in approximatley 10 days. you should have a wound check in 2-3 days. return immediately if any signs of infection as we discussed. you may take tylenol and motrin for pain. - Billing Disposition and Condition Condition: STABLE Disposition: Home
[2018-07-21] MEDS ORDERED: Tetan/Diph/Pertus SYR(Tdap)* 0.5 ML SYR(BOOSTRIX) use SYR IM ONE (16:35)
[2018-07-21] MEDS ORDERED: Lidocaine 1% w EPI 1:100,000* 30 ML VIAL INJ ONE (17:44)
[2018-07-21] MEDS ORDERED: Lidocaine 1% w EPI 1:200,000* 30 ML VIAL INJ ONE (18:03)
== END 2018-07-21 18:34 | disposition home or self-care (01) ==
LOC: UCCORT 15:30
DX: S01.511A Laceration without foreign body of lip, initial encounter (principal); S00.83XA Contusion of other part of head, initial encounter; W01.0XXA Fall on same level from slipping, tripping and stumbling without subsequent striking against object, initial encounter; Y93.01 Activity, walking, marching and hiking; Y92.9 Unspecified place or not applicable; I10 Essential (primary) hypertension; K92.89 Other specified diseases of the digestive system
CPT/HCPCS: 12011; 70486; 71046; 90471; 90715; 99212; A9270-GY; G0463; J2001